=== PATIENT | female | born 1945 | race Caucasian/White ===

== ENCOUNTER 2016-09-16 10:22 | Inpatient (IN) | payer OTHER ==
[2016-09-16] MEDS ORDERED: IOPAMIDOL (ISOVUE-370) 150 ML BTL IV ONE (11:26)
[2016-09-16] MEDS ORDERED: OXYCODONE/APAP 5/325 TAB PO PRN (14:08)
[2016-09-16] MEDS ORDERED: ONDANSETRON 4 MG/2 ML VIAL IVP PRN (14:08)
[2016-09-16] MEDS ORDERED: ACETAMINOPHEN 325 MG TAB PO PRN (14:08)
[2016-09-16 15:52] LABS: % IMMATURE GRANULYOCYTES 2.2 % (0.0-1.1); ABSOLUTE IMMATURE GRANULOCYTES 0.26 10^3/uL (0.00-0.10); ADD DIFF? NO; ADD MORPH? NO; ADD SCAN? NO; ATYPICAL LYMPHOCYTE FLAG 0 (0-99); FRAGMENT RBC FLAG 0 (0-99); HEMATOCRIT 41.7 % (38.0-47.0); HEMOGLOBIN 13.6 g/dL (12.6-16.3); LEFT SHIFT FLG 10 (0-99); LIPEMIA HEMOLYSIS FLAG 80 (0-99); MEAN CELL HEMOGLOBIN 30.4 pg (27.9-34.1); MEAN CELL HEMOGLOBIN CONCENTR. 32.6 g/dL (32.4-36.7); MEAN CELL VOLUME 93.3 fL (81.5-99.8); MEAN PLATELET VOLUME 10.3 fL (8.7-11.7); PLATELET CLUMPS FLAG 0 (0-99); PLATELET COUNT 279 10^3/uL (150-400); RED BLOOD CELL COUNT 4.47 10^6/uL (4.18-5.33); RED CELL DISTRIBUTION WIDTH 14.8 % (11.5-15.2)
[2016-09-16 16:07] LABS: CREATININE 1.1 mg/dL (0.6-1.0)
[2016-09-16 16:16] LABS: INR 1.01 (0.83-1.16); PROTIME(PATIENT) 13.2 SEC (12.0-15.0)
[2016-09-16 16:17] LABS: APTT 21.3 SEC (23.0-38.0)
--- NOTE | 2016-09-16 16:37 | GHP ---
DATE OF ADMISSION: 09/16/2016 HISTORY OF PRESENT ILLNESS: The patient is a 71-year-old female, who returns to our office over con cerns of returning numbness, coolness, and loss of radial pulse in her right arm. The patient repor ts symptoms began approximately 3 days ago while she was in [place], and she drove immediately back to the [place] area to seek evaluation. She underwent surgery in early June 2016, a right axillar y-brachial artery bypass with Dr. Pham, and was recovering well up until this past Friday. She has been taking a daily aspirin, no other anticoagulation. She denies any recent trauma. She is under going a workup with Rheumatology for possible vasculitis, and she is on oral prednisone. She has be en seeing Dr. Sarah, but according to the patient, etiology of her occlusion condition is unknown sti ll at this time. She does have a remote history of pulmonary embolisms, but per the patient she und erwent a hematology workup at that time, which was completely negative. PAST MEDICAL HISTORY: Pulmonary embolisms, bilateral brachial artery surgery in May and er of 2015. ALLERGIES: No known drug allergies. MEDICATIONS: Levothyroxine, prednisone. PAST SURGICAL HISTORY: Right and left brachial artery occlusion surgery with Dr. Pham, hysterectom y appendectomy, cholecystectomy, hernia repair. SOCIAL HISTORY: Former smoker, quit in 2005. No illegal drug use. No regular exercise. Patient i s . The patient used to work at [employer]. PHYSICAL EXAM: GENERAL: Patient is a very pleasant female in no apparent distress. HEAD AND NECK: Normocephalic, atraumatic. No color changes in the face. No swelling in the face or neck. CHEST : CTA bilaterally. HEART: Regular rhythm and rate. ABDOMEN: Soft, nontender. EXTREMITIES: Rig ht hand of normal color upon inspection when compared to the left. There is delayed capillary refil l when compared to the left. No palpable radial pulse. Full range of motion of the wrist and finge rs without difficulty. RADIOLOGY: CT angiogram of the right upper extremity done today at [facility] demonst rates occlusion of the patient's arterial graft. Full report still pending. 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 RECOMMENDATION: The patient was seen and examined in our office by Dr. Pham, and is being admitted to the hospital. Will undergo interventional radiology procedure to possibly lyse the clot. She w ill be observed in the intensive care unit at least for 1 night. She may need prolonged anticoagula tion after this thrombosis. /[id number]/MODL
[2016-09-16] MEDS ORDERED: fentaNYL 100 MCG/2 ML INJ ONE ×3 (17:05→18:33)
[2016-09-16] MEDS ORDERED: LABETALOL HCL 5 MG/ML 20 ML MDV ONE (17:05)
[2016-09-16] MEDS ORDERED: MIDAZOLAM 2 MG/2 ML VIAL ONE ×3 (17:05→18:33)
[2016-09-16] MEDS ORDERED: ALTEPLASE 5 MG in NS 100 ML IVP ONE (18:00)
[2016-09-16] MEDS ORDERED: IOPAMIDOL (ISOVUE-300) 100 ML BTL IV ONE (18:46)
[2016-09-16] MEDS ORDERED: HEPARIN 10,000 UNIT/10 ML MDV ONE (18:47)
[2016-09-16] MEDS ORDERED: HEPARIN/DEXTROSE 25,000 UNIT/500 ML BAG IV ONE (18:48)
[2016-09-16] MEDS ORDERED: hydrALAZINE 20 MG/ML VIAL ONE (18:49)
--- NOTE | 2016-09-16 19:09 | POSTOPPROG ---
Post Op Note Date of Operation: 09/16/16 Surgeon: Jevon Kelsey Anesthesia: IV Sedation Pre-op Diagnosis: Occluded right brachial arterial bypass graft Post-op Diagnosis: Same Indication: Ischemic right hand Procedure: Arteriography; initiation of catheter-directed arterial thrombolysis RUE Findings: Good position of catheter in occluded bypass graft Inf/Abcess present in the surg proc area at time of surgery?: No EBL: Minimal Complications: 0
[2016-09-16] MEDS: HEPARIN/DEXTROSE 500 ML IV SCH (20:24)
[2016-09-16] MEDS: D5W 1/2 NS W/ 20 KCl/L 1,000 ML IV SCH (20:24)
[2016-09-16] MEDS: HYDROCODONE/APAP 5/325 TAB PO PRN (20:54)
[2016-09-16] MEDS: ALTEPLASE 5 MG in NS 100 ML IV SCH (21:17)
[2016-09-16] MEDS: LORazepam 1 MG TAB PO PRN (22:16)
--- NOTE | 2016-09-17 00:25 | SOAPPROG ---
SOAP Progress Note Assessment/Plan: Assessment: HAND WARMER BUT NO PULSE YET Plan:CONTINUE THROMBOLYSIS 09/17/16 00:24 Objective: Vital Signs Temp Pulse Resp BP Pulse Ox 36.6 C 56 L 15 124/48 H 94 09/16/16 19:00 09/17/16 00:00 09/17/16 00:00 09/17/16 00:00 09/17/16 00:00 Laboratory Results 09/16/16 14:40 09/16/16 Unknown PT 13.2 SEC (12.0-15.0) 09/16/16 14:40 INR 1.01 (0.83-1.16) 09/16/16 14:40 ICD10 Worksheet Patient Problems: Problems Problem Status Onset Occlusion of right brachial artery Acute
[2016-09-17] MEDS: ALTEPLASE 5 MG in NS 100 ML IV SCH ×3 (03:07→15:04)
[2016-09-17] MEDS: hydrALAZINE 20 MG/ML VIAL IVP PRN ×2 (03:15→22:07)
[2016-09-17] MEDS: HYDROCODONE/APAP 5/325 TAB PO PRN ×3 (04:18→14:54)
[2016-09-17] MEDS: LORazepam 1 MG TAB PO PRN (04:35)
[2016-09-17] MEDS: D5W 1/2 NS W/ 20 KCl/L 1,000 ML IV SCH ×2 (04:40→18:04)
[2016-09-17 05:06] LABS: % IMMATURE GRANULYOCYTES 0.9 % (0.0-1.1); ABSOLUTE IMMATURE GRANULOCYTES 0.11 10^3/uL (0.00-0.10); ADD DIFF? NO; ADD MORPH? NO; ADD SCAN? NO; ATYPICAL LYMPHOCYTE FLAG 0 (0-99); FRAGMENT RBC FLAG 0 (0-99); HEMATOCRIT 37.9 % (38.0-47.0); HEMOGLOBIN 12.1 g/dL (12.6-16.3); LEFT SHIFT FLG 0 (0-99); LIPEMIA HEMOLYSIS FLAG 80 (0-99); MEAN CELL HEMOGLOBIN 30.4 pg (27.9-34.1); MEAN CELL HEMOGLOBIN CONCENTR. 31.9 g/dL (32.4-36.7); MEAN CELL VOLUME 95.2 fL (81.5-99.8); MEAN PLATELET VOLUME 10.7 fL (8.7-11.7); PLATELET CLUMPS FLAG 0 (0-99); PLATELET COUNT 217 10^3/uL (150-400); RED BLOOD CELL COUNT 3.98 10^6/uL (4.18-5.33); RED CELL DISTRIBUTION WIDTH 14.9 % (11.5-15.2)
[2016-09-17 05:30] LABS: ANION GAP 4 mEq/L (8-16); CALCIUM 8.2 mg/dL (8.5-10.4); CARBON DIOXIDE 28 mEq/l (22-31); CHLORIDE 109 mEq/L (97-110); CREATININE 0.9 mg/dL (0.6-1.0); GLOMERULAR FILTRATION RATE > 60; GLUCOSE 152 mg/dL (70-100); POTASSIUM 4.5 mEq/L (3.5-5.2); SODIUM 141 mEq/L (134-144)
[2016-09-17] MEDS: predniSONE 20 MG TAB PO SCH (08:12)
--- NOTE | 2016-09-17 08:21 | SOAPPROG ---
SOAP Progress Note Assessment/Plan: Assessment: HAND WARMER BUT NO PULSE YET Plan:CONTINUE THROMBOLYSIS 09/17/16 00:24 09/17/16 08:20 RT HAND WARMER AND NO PAIN BUT STILL NO PULSES AT WRIST/ FU WITH ANGIO Objective: Vital Signs Temp Pulse Resp BP Pulse Ox 36.8 C 59 L 19 145/60 H 100 09/17/16 08:00 09/17/16 08:00 09/17/16 08:00 09/17/16 08:00 09/17/16 08:00 Laboratory Results 09/17/16 04:42 09/17/16 04:42 09/16/16 09/17/16 09/18/16 05:59 05:59 05:59 Intake Total 2296 Output Total 1475 Balance 821 PT 13.2 SEC (12.0-15.0) 09/16/16 14:40 INR 1.01 (0.83-1.16) 09/16/16 14:40 ICD10 Worksheet Patient Problems: Problems Problem Status Onset Occlusion of right brachial artery Acute
[2016-09-17] MEDS ORDERED: MIDAZOLAM 2 MG/2 ML VIAL ONE (11:19)
[2016-09-17] MEDS ORDERED: fentaNYL 100 MCG/2 ML INJ ONE ×2 (11:19→12:00)
--- NOTE | 2016-09-17 12:47 | POSTOPPROG ---
Post Op Note Date of Operation: 09/17/16 Surgeon: Jevon Kelsey Anesthesia: IV Sedation Pre-op Diagnosis: Occluded right brachial arterial bypass graft Post-op Diagnosis: Arterial embolus, right hand Indication: Ischemic right hand, follow-up IA thrombolysis Procedure: Arteriogram right arm and hand; catheter reposition Findings: Lysis of occluded bypass graft. Embolus in radial artery of right hand. Inf/Abcess present in the surg proc area at time of surgery?: No EBL: 50-100 Complications: 0
[2016-09-17] MEDS ORDERED: NITROGLYCERIN/D5W 50 MG/250 ML BOTTLE IV ONE (12:48)
[2016-09-17] MEDS ORDERED: IOPAMIDOL (ISOVUE-300) 100 ML BTL IV ONE (12:48)
[2016-09-17] MEDS ORDERED: HEPARIN 10,000 UNIT/10 ML MDV ONE (15:35)
--- NOTE | 2016-09-17 18:02 | GCON ---
PULMONARY CRITICAL CARE CONSULTATION. DATE OF CONSULTATION: 09/17/2016 REASON FOR CONSULTATION: Arterial occlusion of the right upper extremity. HISTORY: The patient is a 71-year-old, who was admitted for the loss of radial arterial pulse in her right upper extremity. This happened several days ago in [place]. She returned back to [facility] by car for evaluation by Dr. Pham. Several months ago, she had a right axillary brachial artery bypass secondary to occlusion for unclear reasons. She has been on daily aspirin since. 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 Following admission, she was taken to Interventional Radiology for EKOS and tPA lysis. A clot was found occluding the patient's arterial graft site. She has been re-evaluated today by Interventional Radiology. The tPA drip is continuing. Perfusion has improved; however, some clot apparently persists. PAST MEDICAL HISTORY: Remarkable as noted above. Brachial artery surgery and bypasses as noted. SOCIAL HISTORY: The patient is . She works at [employer] currently. She smoked in the past, quitting about 10 years ago. Significant alcohol is denied. PHYSICAL EXAMINATION: GENERAL: Reveals a woman who is sedated and resting comfortably post interventional radiologic procedure. She does have some sonorous respirations. CHEST: Clear. HEART: Regular in rate and rhythm. ABDOMEN: Soft, nontender. Bowel sounds are present. The right hand grossly looks within normal limits and was not examined currently. The EKOS catheter is in place via the right side. NEUROLOGIC: Examination has been intact. DATABASE/RADIOLOGIC STUDIES: As outlined above. LABORATORY: White blood cell count is 12,900, hematocrit 38, platelets 217, 000. PT and PTT are within normal limits. Fibrinogen is normal. Basic metabolic panel is normal with the exception of mildly elevated glucose at 152. ASSESSMENT: 1. Reocclusion of the right brachial artery at the previous graft sites. She is receiving tPA lysis per Interventional Radiology. She appears to be doing well, with improvement. Anticoagulation will need to be considered post procedure. 2. Possible history of inflammatory vasculitis. On prednisone at 40 mg per day. PLAN AND RECOMMENDATIONS: The patient will be kept in the intensive care unit while the EKOS catheter and tPA infusion are continuing. She will go back to Interventional Radiology for re-imaging tomorrow and plans regarding continuing or stopping her tPA drip. Appropriate pain control will be maintained. Anticoagulation will be continued post procedure, along with anti-platelet therapy with aspirin. Prednisone will be continued for now. Further plans and recommendations will be made based on her progress over the next 12-24 hours. /[id number]/MODL MTDD
--- NOTE | 2016-09-17 19:37 | SOAPPROG ---
SOAP Progress Note Assessment/Plan: Assessment: Improving ischemia of right hand Plan: NTG patch right hand. TPA 0.5 mg/hr IA overnight Heparin 400 U/hr Arteriography tomorrow am. 09/17/16 19:34 Subjective: Patient in better spirits. Eating and drinking without nausea. Volunteers that sensation has returned to all fingers except little finger. Objective: Vital Signs Temp Pulse Resp BP Pulse Ox 36.8 C 60 15 145/53 H 97 09/17/16 08:00 09/17/16 18:00 09/17/16 18:00 09/17/16 18:00 09/17/16 18:00 Laboratory Results 09/17/16 04:42 09/17/16 04:42 09/16/16 09/17/16 09/18/16 05:59 05:59 05:59 Intake Total 2296 1932 Output Total 1475 1400 Balance 821 532 PT 13.2 SEC (12.0-15.0) 09/16/16 14:40 INR 1.01 (0.83-1.16) 09/16/16 14:40 Hand warmer. Skin less pale. Capillary refill of fingers still slow but improved. Right brachial pulse 2+ Right radial pulse 1+ DP and PT pulses present in both feet. Right groin dry; no hematoma. Infusates are connected properly. ICD10 Worksheet Patient Problems: Problems Problem Status Onset Occlusion of right brachial artery Acute
[2016-09-17 19:43] LABS: APTT 32.9 SEC (23.0-38.0)
[2016-09-17] MEDS: PATCH REMOVAL 1 EA PATCH TD SCH (20:25)
[2016-09-17] MEDS: NITROGLYCERIN 0.4 MG/HR PATCH TD SCH (20:27)
[2016-09-18] MEDS: LORazepam 1 MG TAB PO PRN ×2 (01:06→18:05)
[2016-09-18] MEDS: ALTEPLASE 5 MG in NS 100 ML IV SCH ×2 (01:07→09:23)
[2016-09-18] MEDS: LEVOTHYROXINE 75 MCG TAB PO SCH (06:06)
[2016-09-18] MEDS: hydrALAZINE 20 MG/ML VIAL IVP PRN ×3 (06:08→18:06)
[2016-09-18] MEDS: HYDROmorphONE/DILAUDID 1 MG/ML SYR IVP PRN ×3 (06:45→21:44)
[2016-09-18 07:59] LABS: APTT 29.2 SEC (23.0-38.0)
[2016-09-18] MEDS: NITROGLYCERIN 0.4 MG/HR PATCH TD SCH (08:45)
[2016-09-18] MEDS: predniSONE 20 MG TAB PO SCH (08:45)
[2016-09-18] MEDS ORDERED: LORazepam 2 MG/ML INJ ONE (09:44)
[2016-09-18] MEDS ORDERED: LORazepam 2 MG/ML INJ IVP PRN (09:58)
--- NOTE | 2016-09-18 10:44 | SOAPPROG ---
SOAP Progress Note Assessment/Plan: Assessment/Plan: 71 Y F c hx R axillary-brachial bypass graft admitted with cold painful RUE, graft occlusion. TPA and heparin flowing. Arm feels better, hand warmer, finger tips still slightly cyanotic and tender. To IR later today for reevaulation. S: no pain unless moving arm. some tenderness at finger tips. overall feeling better not resolved O: alert, nad ncat, mmm no wob ext: +proximal radial and ulnar and faint perez arch pulses on doppler. cannot doppler distal radial pulse. hand is warm, finger tips slight cyanosis, +mild delay in cap refill 09/18/16 10:41 Objective: Vital Signs Temp Pulse Resp BP Pulse Ox 36.8 C 69 20 135/48 H 97 09/17/16 08:00 09/18/16 10:00 09/18/16 10:00 09/18/16 10:00 09/18/16 10:00 Laboratory Results 09/17/16 04:42 09/17/16 04:42 09/17/16 09/18/16 09/19/16 05:59 05:59 05:59 Intake Total 2296 3722 Output Total 1475 2350 Balance 821 1372 PT 13.2 SEC (12.0-15.0) 09/16/16 14:40 INR 1.01 (0.83-1.16) 09/16/16 14:40 ICD10 Worksheet Patient Problems: Problems Problem Status Onset Occlusion of right brachial artery Acute
[2016-09-18] MEDS ORDERED: NALOXONE HCL 0.4 MG/ML INJ ONE (14:57)
[2016-09-18] MEDS ORDERED: FLUMAZENIL 0.5 MG/5 ML MDV IVP ONE (14:57)
[2016-09-18] MEDS ORDERED: fentaNYL 100 MCG/2 ML INJ ONE ×2 (14:58→16:53)
[2016-09-18] MEDS ORDERED: MIDAZOLAM 2 MG/2 ML VIAL ONE (14:58)
[2016-09-18] MEDS ORDERED: CEFAZOLIN 2 GM/DEXTROSE/100 ML BAG IV ONE (16:06)
[2016-09-18] MEDS ORDERED: NITROGLYCERIN 50 MG/10 ML SDV IV ONE (16:38)
[2016-09-18] MEDS ORDERED: VERAPAMIL 5 MG/2 ML VIAL ONE (16:38)
[2016-09-18] MEDS ORDERED: HEPARIN 10,000 UNIT/10 ML MDV ONE (16:39)
[2016-09-18] MEDS ORDERED: IOPAMIDOL (ISOVUE-300) 100 ML BTL IV ONE (17:26)
[2016-09-18] MEDS ORDERED: NITROGLYCERIN/D5W 50 MG/250 ML BOTTLE IV ONE (17:26)
--- NOTE | 2016-09-18 18:28 | PDINTPN ---
Mixer Tender Progress Note Assessment/Plan: Assessment: Arterial occlusion of the right brachial artery at the previous graft site. Status post [place] in tPA per Interventional Radiology. Going back today for further assessment. Surgery following. History of bilateral axillary/brachial artery bypass grafting. History of inflammatory vasculitis, prednisone therapy. Anticoagulation: On heparin drip with localized tPA. Plan: Back to IR today for further angiography and treatment per their findings. Follow hand perfusion, neurologic status. Continue anticoagulation. Subjective: Doing okay. Some pain in the distal hand. Objective: Vital Signs Temp Pulse Resp BP Pulse Ox 36.8 C 64 14 182/105 H 97 09/17/16 08:00 09/18/16 14:00 09/18/16 14:00 09/18/16 18:06 09/18/16 14:00 Laboratory Results 09/17/16 04:42 09/17/16 04:42 09/17/16 09/18/16 09/19/16 05:59 05:59 05:59 Intake Total 2296 3722 795 Output Total 1475 2350 1100 Balance 821 1372 -305 PT 13.2 SEC (12.0-15.0) 09/16/16 14:40 INR 1.01 (0.83-1.16) 09/16/16 14:40 Physical Exam - Physical Exam General Appearance: alert, no apparent distress, obese EENT: other (Nasal cannula 2 L) Neck: normal inspection (Large neck) Respiratory: lungs clear, decreased breath sounds (At bases) Cardiac/Chest: regular rate, rhythm Abdomen: normal bowel sounds, non-tender, soft Pelvic Exam: other Skin: normal color, warm/dry Extremities: pedal edema (Trace +), other (Distal hands remains somewhat dusky, poor refill, slightly cool) Neuro/Psych: no motor/sensory deficits (Except related to the right upper extremity), No cognition abnormalities ICD10 Worksheet Patient Problems: Problems Problem Status Onset Occlusion of right brachial artery Acute
[2016-09-18] MEDS: PATCH REMOVAL 1 EA PATCH TD SCH (19:04)
[2016-09-18] MEDS ORDERED: NITROGLYCERIN 2% 1 GM PACKET TP ONE (20:00)
[2016-09-18] MEDS: NS IVP SCH (21:51)
[2016-09-18] MEDS: VERAPAMIL IVP SCH (21:51)
[2016-09-18] MEDS: HYDROCODONE/APAP 5/325 TAB PO PRN (23:00)
[2016-09-19] MEDS: LORazepam 1 MG TAB PO PRN (00:45)
[2016-09-19] MEDS: ALTEPLASE 5 MG in NS 100 ML IV SCH ×2 (00:45→15:26)
[2016-09-19] MEDS: LEVOTHYROXINE 75 MCG TAB PO SCH (06:39)
[2016-09-19] MEDS: NS IVP SCH (06:39)
[2016-09-19] MEDS: VERAPAMIL IVP SCH (06:39)
[2016-09-19] MEDS: hydrALAZINE 20 MG/ML VIAL IVP PRN (08:39)
--- NOTE | 2016-09-19 10:12 | SOAPPROG ---
SOAP Progress Note Assessment/Plan: Assessment: 71yo female s/p R arm brachial artery bypass readmitted for decreased pulse, cold upper ext S/P IR angioplasty, getting TPA Pt feels more pain in right forearm this AM PE awake alert earful RUE cool to touch, right prox radial pulse and ulnar upon doppler, able to move fingers small amount, catheter in place Plan: will add procardia discussed with Dr Pham 09/19/16 10:09 09/19/16 10:12 Objective: Vital Signs Temp Pulse Resp BP Pulse Ox 36.9 C 62 14 192/63 H 98 09/18/16 20:00 09/19/16 07:35 09/19/16 07:35 09/19/16 08:39 09/19/16 07:35 Laboratory Results 09/17/16 04:42 09/17/16 04:42 09/18/16 09/19/16 09/20/16 05:59 05:59 05:59 Intake Total 3722 2981 Output Total 2350 3900 Balance 1372 -919 PT 13.2 SEC (12.0-15.0) 09/16/16 14:40 INR 1.01 (0.83-1.16) 09/16/16 14:40 ICD10 Worksheet Patient Problems: Problems Problem Status Onset Occlusion of right brachial artery Acute
[2016-09-19] MEDS: predniSONE 20 MG TAB PO SCH (10:28)
[2016-09-19] MEDS: NITROGLYCERIN 0.4 MG/HR PATCH TD SCH (10:29)
[2016-09-19] MEDS: NIFEdipine ER 30 MG TAB PO SCH (10:29)
[2016-09-19] MEDS ORDERED: FLUMAZENIL 0.5 MG/5 ML MDV IVP ONE (11:06)
[2016-09-19] MEDS ORDERED: NALOXONE HCL 0.4 MG/ML INJ ONE (11:07)
[2016-09-19] MEDS ORDERED: fentaNYL 100 MCG/2 ML INJ ONE ×2 (11:07→17:15)
[2016-09-19] MEDS ORDERED: MIDAZOLAM 2 MG/2 ML VIAL ONE (11:08)
[2016-09-19] MEDS ORDERED: HEPARIN 10,000 UNIT/10 ML MDV ONE ×3 (11:32→13:02)
[2016-09-19] MEDS ORDERED: PROTAMINE SULFATE 50 MG/5 ML VIAL IVP ONE (11:45)
[2016-09-19] MEDS ORDERED: IOPAMIDOL (ISOVUE-300) 100 ML BTL IV ONE ×2 (13:02→18:44)
--- NOTE | 2016-09-19 16:01 | PCMIDPN ---
Assessment/Plan: Assessment: Arterial occlusion of the right brachial artery at the previous graft site. Status post [place] in tPA per Interventional Radiology. Going back today for further assessment. Surgery following. History of bilateral axillary/brachial artery bypass grafting. History of inflammatory vasculitis, prednisone therapy. Anticoagulation: On heparin drip with localized tPA. Plan: Back to IR today for further angiography and treatment per their findings. Follow hand perfusion, neurologic status. Continue anticoagulation. Objective: Vital Signs Temp Pulse Resp BP Pulse Ox 36.9 C 68 20 165/69 H 97 09/18/16 20:00 09/19/16 14:19 09/19/16 14:19 09/19/16 14:19 09/19/16 14:19 Laboratory Results 09/17/16 04:42 09/17/16 04:42 09/18/16 09/19/16 09/20/16 05:59 05:59 05:59 Intake Total 3722 2987 Output Total 1515 8925 Balance 1372 -919 ICD10 Worksheet Patient Problems: Problems Problem Status Onset Occlusion of right brachial artery Acute
--- NOTE | 2016-09-19 16:17 | PDINTPN ---
Instrumentation Manager Progress Note Assessment/Plan: Assessment: Arterial occlusion of the right brachial artery at the previous graft site. Status post [place] in tPA per Interventional Radiology. Going back today for further assessment. Surgery following. History of bilateral axillary/brachial artery bypass grafting. History of inflammatory vasculitis, prednisone therapy. She was diagnosed with Jorge cell arteritis by biopsy and has been on steroids, initially starting at [address] Sarah. He does not feel that this represents recurrent vasculitis but cannot absolutely exclude this. We discussed pulse steroids. He felt there was no downside to this. Will initiate 1 g per day x3 days, then back to oral prednisone. Anticoagulation: On heparin drip with localized tPA. Plan: Back to IR today for further angiography and treatment later today. Follow hand perfusion, neurologic status. Continue anticoagulation once off tPA. Will pulse dose Solu-Medrol at 1 g q.day for 3 days. Subjective: Concern regarding her hands/fingers: Remains cold, numb Objective: Vital Signs Temp Pulse Resp BP Pulse Ox 36.9 C 68 20 165/69 H 97 09/18/16 20:00 09/19/16 14:19 09/19/16 14:19 09/19/16 14:19 09/19/16 14:19 Laboratory Results 09/17/16 04:42 09/17/16 04:42 09/18/16 09/19/16 09/20/16 05:59 05:59 05:59 Intake Total 3722 2981 Output Total 2350 3900 Balance 1372 -919 PT 13.2 SEC (12.0-15.0) 09/16/16 14:40 INR 1.01 (0.83-1.16) 09/16/16 14:40 Status post return to interventional Radiology for further tPA. Results of studies and procedure pending. Physical Exam - Physical Exam General Appearance: alert, no apparent distress, obese EENT: PERRL/EOMI, other (Nasal cannula 2 L) Neck: normal inspection Respiratory: lungs clear, decreased breath sounds Cardiac/Chest: regular rate, rhythm Abdomen: normal bowel sounds, non-tender, soft Pelvic Exam: other ([place] catheter, good urine output) Skin: normal color, warm/dry, mottled (Related to right hand/fingers) Extremities: other (Right hand changes: Cyanotic, cool, decreased sensation) Neuro/Psych: no motor/sensory deficits (execpt for right hand), No cognition abnormalities ICD10 Worksheet Patient Problems: Problems Problem Status Onset Occlusion of right brachial artery Acute
[2016-09-19 16:38] LABS: FIBRINOGEN 397 mg/dL (214-456)
[2016-09-19] MEDS: PANTOPRAZOLE SODIUM 40 MG in NS 100 ML IV SCH (16:48)
[2016-09-19 16:54] LABS: HEMATOCRIT 35.4 % (38.0-47.0); HEMOGLOBIN 11.7 g/dL (12.6-16.3); MEAN CELL HEMOGLOBIN 31.5 pg (27.9-34.1); MEAN CELL HEMOGLOBIN CONCENTR. 33.1 g/dL (32.4-36.7); MEAN CELL VOLUME 95.2 fL (81.5-99.8); RED BLOOD CELL COUNT 3.72 10^6/uL (4.18-5.33); RED CELL DISTRIBUTION WIDTH 15.2 % (11.5-15.2)
[2016-09-19] MEDS: methylPREDNISolone SOD SUCC 1,000 MG in D5W 100 ML IV SCH (19:21)
[2016-09-19] MEDS: PATCH REMOVAL 1 EA PATCH TD SCH (19:22)
[2016-09-19] MEDS: D5W 1/2 NS W/ 20 KCl/L 1,000 ML IV SCH (21:36)
--- NOTE | 2016-09-19 23:25 | SOAPPROG ---
ARABELLA Progress Note Assessment/Plan: Assessment: HAND WARMER BUT NO PULSE YET Plan:CONTINUE THROMBOLYSIS 09/17/16 00:24 09/17/16 08:20 RT HAND WARMER AND NO PAIN BUT STILL NO PULSES AT WRIST/ FU WITH ANGIO 09/19/16 23:24 APPEARS TO HAVE SUCCESSFUL THROMBOLYSIS/ ? VASCULITIS AT PROXIMAL ANASTAMOSIS/ CONTINUE ANTICOAGULATION/ FU IMAGING IN 4 WEEKS Objective: Vital Signs Temp Pulse Resp BP Pulse Ox 36.9 C 64 19 133/60 H 98 09/18/16 20:00 09/19/16 22:00 09/19/16 22:00 09/19/16 22:00 09/19/16 22:00 Laboratory Results 09/19/16 16:45 09/17/16 04:42 09/18/16 09/19/16 09/20/16 05:59 05:59 05:59 Intake Total 3722 2981 1425 Output Total 2350 3900 1950 Balance 1372 -919 -525 PT 13.2 SEC (12.0-15.0) 09/16/16 14:40 INR 1.01 (0.83-1.16) 09/16/16 14:40 ICD10 Worksheet Patient Problems: Problems Problem Status Onset Occlusion of right brachial artery Acute
[2016-09-20 05:06] LABS: ALANINE AMINOTRANSFERASE 28 IU/L (9-52); ALBUMIN 2.7 g/dL (3.5-5.0); ALKALINE PHOSPHATASE 44 IU/L (38-126); ANION GAP 5 mEq/L (8-16); ASPARTATE AMINOTRANSFERASE 33 IU/L (14-46); BILIRUBIN,TOTAL 0.7 mg/dL (0.1-1.4); CALCIUM 7.6 mg/dL (8.5-10.4); CARBON DIOXIDE 23 mEq/l (22-31); CHLORIDE 108 mEq/L (97-110); CREATININE 0.8 mg/dL (0.6-1.0); GLOMERULAR FILTRATION RATE > 60; GLUCOSE 172 mg/dL (70-100); POTASSIUM 5.1 mEq/L (3.5-5.2); SODIUM 136 mEq/L (134-144); TOTAL PROTEIN 5.1 g/dL (6.3-8.2)
[2016-09-20] MEDS: LEVOTHYROXINE 75 MCG TAB PO SCH (06:28)
[2016-09-20] MEDS: NITROGLYCERIN 0.4 MG/HR PATCH TD SCH (08:26)
[2016-09-20 08:29] LABS: HEMATOCRIT 34.1 % (38.0-47.0); HEMOGLOBIN 11.2 g/dL (12.6-16.3); MEAN CELL HEMOGLOBIN 30.4 pg (27.9-34.1); MEAN CELL HEMOGLOBIN CONCENTR. 32.8 g/dL (32.4-36.7); MEAN CELL VOLUME 92.7 fL (81.5-99.8); RED BLOOD CELL COUNT 3.68 10^6/uL (4.18-5.33); RED CELL DISTRIBUTION WIDTH 14.9 % (11.5-15.2)
[2016-09-20] MEDS: PANTOPRAZOLE SODIUM 40 MG in NS 100 ML IV SCH (09:08)
[2016-09-20] MEDS: methylPREDNISolone SOD SUCC 1,000 MG in D5W 100 ML IV SCH (09:08)
--- NOTE | 2016-09-20 09:37 | SOAPPROG ---
ARABELLA Progress Note Assessment/Plan: Assessment: 71yo female s/p R arm brachial artery bypass readmitted for decreased pulse, cold upper ext S/P IR angioplasty, Pt feels much better today, arm with less pain, wants to go home PE awake alert RUE warm to touch, bandage dry, Plan: Home in 2-3 days will start coumadin today, will need lifelong anticoagulation, ?F/U with Dr Velasquez in [place] whom patient saw 5 years ago after PE seen with Dr Pham 09/19/16 10:09 09/19/16 10:12 09/20/16 09:34 Objective: Vital Signs Temp Pulse Resp BP Pulse Ox 36.9 C 62 13 136/42 H 90 L 09/18/16 20:00 09/20/16 04:00 09/20/16 04:00 09/20/16 04:00 09/20/16 04:00 Laboratory Results 09/20/16 08:09 09/20/16 04:30 09/19/16 09/20/16 09/21/16 05:59 05:59 05:59 Intake Total 2983 0097 Output Total 4261 1660 Balance -919 -305 PT 13.2 SEC (12.0-15.0) 09/16/16 14:40 INR 1.01 (0.83-1.16) 09/16/16 14:40 ICD10 Worksheet Patient Problems: Problems Problem Status Onset Occlusion of right brachial artery Acute
[2016-09-20] MEDS: NIFEdipine ER 30 MG TAB PO SCH (10:50)
--- NOTE | 2016-09-20 13:06 | PDINTPN ---
Basket Assembler Progress Note Assessment/Plan: Assessment: Arterial occlusion of the right brachial artery at the previous graft site. Status post ecos and tPA per Interventional Radiology. Removed yesterday after more aggressive thrombolysis and documentation of excellent vascular patency at the graft site and distally. Surgery following as well. History of bilateral axillary/brachial artery bypass grafting. Apparently secondary to vasculitis History of inflammatory vasculitis, prednisone therapy. She was diagnosed with giant cell arteritis by biopsy and has been on steroids, initially starting at [address] Sarah. He does not feel that this represents recurrent vasculitis but cannot exclude this. On empiric pulse steroids, day 2/ 3 of 1 gm. However, I doubt this resulted in her significant improvement. Anticoagulation: On heparin drip, Coumadin ordered. Metabolic: Increased glucoses secondary to steroids. May need sliding scale coverage. Plan: Continue current therapies, anticoagulation with heparin and initiation of Coumadin. Continue pulse steroids with taper to 60mg prednisone per day once off Solu-Medrol. Subjective: Hand is significantly better today, warm, without pain. Objective: Vital Signs Temp Pulse Resp BP Pulse Ox 36.5 C 69 17 157/63 H 94 09/20/16 10:00 09/20/16 10:00 09/20/16 10:00 09/20/16 10:00 09/20/16 10:00 Laboratory Results 09/20/16 08:09 09/20/16 04:30 09/19/16 09/20/16 09/21/16 05:59 05:59 05:59 Intake Total 2981 2845 Output Total 3900 3150 Balance -919 -305 PT 13.2 SEC (12.0-15.0) 09/16/16 14:40 INR 1.01 (0.83-1.16) 09/16/16 14:40 Physical Exam - Physical Exam General Appearance: alert, no apparent distress, obese EENT: PERRL/EOMI, other (Nasal cannula at 2 L when in bed, room air when not) Neck: normal inspection Respiratory: lungs clear, decreased breath sounds Cardiac/Chest: regular rate, rhythm Abdomen: normal bowel sounds, non-tender, soft (Obese) Skin: normal color, warm/dry Extremities: other (Ischemic changes of right upper extremity resolving) Neuro/Psych: no motor/sensory deficits, No cognition abnormalities ICD10 Worksheet Patient Problems: Problems Problem Status Onset Occlusion of right brachial artery Acute
[2016-09-20] MEDS ORDERED: D50W 25 GM/50 ML SYR IVP PRN (13:24)
[2016-09-20] MEDS ORDERED: HEPARIN 10,000 UNIT/10 ML MDV IVP PRN (14:26)
--- NOTE | 2016-09-20 14:27 | SOAPPROG ---
SOAP Progress Note Assessment/Plan: Assessment: Patency of RUE arterial supply. Reviewed with Dr. Escoto and Dr. Pham. Plan: Lifelong systemic anticoagulation. 09/17/16 19:34 09/20/16 14:21 09/20/16 14:27 Subjective: Right hand is warm and free of pain. Patient is very happy with the outcome. Objective: Right hand is warm. Capillary refill 1-2 seconds, all fingers. Pulses Radial Ulnar Brachial Femoral PT DP Left 4+ 4 4 Right 4 4 4 4 4 4 Right groin dry, no hematoma. Right wrist shows mild radial ecchymosis. Vital Signs Temp Pulse Resp BP Pulse Ox 36.5 C 69 17 157/63 H 94 09/20/16 10:00 09/20/16 10:00 09/20/16 10:00 09/20/16 10:00 09/20/16 10:00 Laboratory Results 09/20/16 08:09 09/20/16 04:30 09/19/16 09/20/16 09/21/16 05:59 05:59 05:59 Intake Total 2981 2845 Output Total 3900 3150 Balance -919 -305 PT 13.2 SEC (12.0-15.0) 09/16/16 14:40 INR 1.01 (0.83-1.16) 09/16/16 14:40 ICD10 Worksheet Patient Problems: Problems Problem Status Onset Occlusion of right brachial artery Acute
[2016-09-20] MEDS: WARFARIN SODIUM 5 MG TAB PO SCH (16:36)
[2016-09-20] MEDS: hydrALAZINE 20 MG/ML VIAL IVP PRN (18:07)
[2016-09-20] MEDS: PATCH REMOVAL 1 EA PATCH TD SCH (21:14)
[2016-09-21] MEDS: LORazepam 1 MG TAB PO PRN (00:02)
[2016-09-21] MEDS: LEVOTHYROXINE 75 MCG TAB PO SCH (05:51)
[2016-09-21] MEDS: PANTOPRAZOLE SODIUM 40 MG TAB PO SCH (07:45)
[2016-09-21] MEDS: NIFEdipine ER 30 MG TAB PO SCH (07:45)
[2016-09-21] MEDS: NITROGLYCERIN 0.4 MG/HR PATCH TD SCH (07:47)
--- NOTE | 2016-09-21 07:55 | SOAPPROG ---
ARABELLA Progress Note Assessment/Plan: Assessment: HAND WARMER BUT NO PULSE YET Plan:CONTINUE THROMBOLYSIS 09/17/16 00:24 09/17/16 08:20 RT HAND WARMER AND NO PAIN BUT STILL NO PULSES AT WRIST/ FU WITH ANGIO 09/19/16 23:24 APPEARS TO HAVE SUCCESSFUL THROMBOLYSIS/ ? VASCULITIS AT PROXIMAL ANASTAMOSIS/ CONTINUE ANTICOAGULATION/ FU IMAGING IN 4 WEEKS 09/21/16 07:53 hand warm and functional/ some numbness/ great brachial and adequate radial pulse/ home soon on full anticoagulation Objective: Vital Signs Temp Pulse Resp BP Pulse Ox 36.7 C 70 20 139/54 H 96 09/21/16 04:00 09/21/16 04:00 09/21/16 04:00 09/21/16 07:45 09/21/16 04:00 Laboratory Results 09/20/16 08:09 09/20/16 04:30 09/20/16 09/21/16 09/22/16 05:59 05:59 06:59 Intake Total 2845 1612 Output Total 3150 400 Balance -305 1212 PT 13.2 SEC (12.0-15.0) 09/16/16 14:40 INR 1.01 (0.83-1.16) 09/16/16 14:40 ICD10 Worksheet Patient Problems: Problems Problem Status Onset Occlusion of right brachial artery Acute
[2016-09-21] MEDS: methylPREDNISolone SOD SUCC 1,000 MG in D5W 100 ML IV SCH (08:19)
[2016-09-21] MEDS: HEPARIN/DEXTROSE 500 ML IV SCH (08:19)
[2016-09-21] MEDS: ENOXAPARIN 100 MG/ML SYR SC SCH ×2 (11:42→20:01)
[2016-09-21 13:39] LABS: INR 1.37 (0.83-1.16); PROTIME(PATIENT) 16.9 SEC (12.0-15.0)
[2016-09-21] MEDS: WARFARIN SODIUM 5 MG TAB PO SCH (15:37)
[2016-09-21] MEDS: PATCH REMOVAL 1 EA PATCH TD SCH (20:02)
[2016-09-21 22:34] VITALS: TEMP 98.1; O2SAT 94
[2016-09-22] MEDS: LEVOTHYROXINE 75 MCG TAB PO SCH (05:02)
[2016-09-22 05:32] LABS: INR 1.87 (0.83-1.16); PROTIME(PATIENT) 21.6 SEC (12.0-15.0)
[2016-09-22 07:49] VITALS: BP 155/76; PULSE 68; RESP 18
[2016-09-22] MEDS: predniSONE 20 MG TAB PO SCH (08:38)
[2016-09-22] MEDS: ENOXAPARIN 100 MG/ML SYR SC SCH (08:38)
[2016-09-22] MEDS: PANTOPRAZOLE SODIUM 40 MG TAB PO SCH (08:41)
[2016-09-22] MEDS: NIFEdipine ER 30 MG TAB PO SCH (08:48)
--- NOTE | 2016-09-22 09:37 | SOAPPROG ---
SOAP Progress Note Assessment/Plan: Assessment/Plan: 71 Y F c hx R axillary-brachial bypass graft admitted with cold painful RUE, graft occlusion. Palpable radial pulse. Hand warm. No pain and good function. INR 1.8. D/c to home today with lovenox, warfarin, procardia. F/u 1 week. INR on Friday. Patient would like to get set up at [place] cou[facility] clinic. She may be able to do this via PCP or Dr. Velasquez. S: no pain unless moving arm. some tenderness at finger tips. overall feeling better not resolved O: alert, nad ncat, mmm no wob ext: palpable radial pulse, hand warm 09/22/16 09:35 Objective: Vital Signs Temp Pulse Resp BP Pulse Ox 36.7 C 68 18 155/76 H 94 09/22/16 07:46 09/22/16 07:46 09/22/16 07:46 09/22/16 07:46 09/22/16 07:46 Laboratory Results 09/20/16 08:09 09/20/16 04:30 09/21/16 09/22/16 09/23/16 04:59 05:59 05:59 Intake Total Output Total Balance PT 21.6 SEC (12.0-15.0) H 09/22/16 04:35 INR 1.87 (0.83-1.16) H 09/22/16 04:35 ICD10 Worksheet Patient Problems: Problems Problem Status Onset Occlusion of right brachial artery Acute
[2016-09-22] MEDS: NITROGLYCERIN 0.4 MG/HR PATCH TD SCH (10:26)
[2016-09-23] MEDS ORDERED: ALENDRONATE SODIUM 70 MG TAB PO SCH (07:00)
== END 2016-09-22 12:21 | disposition home or self-care (01) | DRG 254 ==
LOC: FIMAGING 10:22 → F2N 16:49 → EDSTATUS 18:00 → F2N 19:25 → F3E 09-21 13:48
PROVIDERS: ADMIT Surgery; ATTEND Surgery
PROC: 3E06317 Introduction of Other Thrombolytic into Central Artery, Percutaneous Approach (ICD-10-PCS; 2016-09-16)
PROC: 03753ZZ Dilation of Right Axillary Artery, Percutaneous Approach (ICD-10-PCS; principal; 2016-09-18)
PROC: 03773ZZ Dilation of Right Brachial Artery, Percutaneous Approach (ICD-10-PCS; principal; 2016-09-18)
DX: T82.868A Thrombosis due to vascular prosthetic devices, implants and grafts, initial encounter (principal); Z86.711 Personal history of pulmonary embolism
CPT/HCPCS: 85520-90; C1725; C1757; C1760; C1769; C1892; C1894; J0360; J0690; J1170; J1644; J1650; J2250; J2310; J2405; J2720; J2930; J2997; J3010; J3490; Q9967

== ENCOUNTER 2016-09-24 09:18 | Observation (INO) | payer OTHER ==
--- NOTE | 2016-09-24 10:08 | EDPHY ---
H & P Time Seen by Provider: 09/24/16 09:37 HPI/ROS: CHIEF COMPLAINT: Right arm pain HISTORY OF PRESENT ILLNESS: 71-year-old female presents to the emergency department with concerns about reocclusion of her right brachial artery graft. The patient had graft place in June of 2016. She had occlusion on September 16, 2016 and had tPA lysis. She is on Lovenox and Coumadin now. She states that she was discharged from the hospital 2 days ago and was doing well and then this morning while she was in the shower she developed tingling in her hand. She now has pain in her entire right upper extremity. Her hand feels cold. She is worried about reoccluding the graft. She denies chest pain or difficulty breathing. She denies calf pain or swelling. Denies abdominal pain. Denies headache. She has also had a previous graft to the left brachial artery however she states that her left upper extremity is fine. No symptoms in her lower extremities bilaterally. No reported trauma. She has been taking her medication as prescribed including Coumadin and Lovenox. Last INR was on Friday, 2 days ago and was 1.8. REVIEW OF SYSTEMS: Constitutional: No fever, no chills. Eyes: No double or blurry vision. ENT: No sore throat. Respiratory: No cough, no shortness of breath. Cardiac: No chest pain. Gastrointestinal: No abdominal pain, vomiting or diarrhea. Genitourinary: No dysuria. Musculoskeletal: No neck or back pain. Skin: No rashes. Neurological: No headache. 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 Pham, hysterectomy, appendectomy, cholecystectomy, hernia repair Social History: , retired Smoking Status: Former smoker Physical Exam: General Appearance: Alert, no distress. 177/75 Eyes: Pupils equal and round. Extraocular motions are all intact. ENT: Mouth: Mucous membranes moist. Respiratory: No wheezing, rhonchi, or rales, lungs are clear to auscultation. Cardiovascular: Regular rate and rhythm. Gastrointestinal: Abdomen is soft and nontender, no masses, no rebound or guarding, bowel sounds normal. Neurological: Alert and oriented x 3, cranial nerves II through XII grossly intact Skin: Warm and dry, no rashes. Musculoskeletal: Nontender to palpate along the cervical, thoracic or lumbar spine. Neck is supple. Extremities: Full range of motion and no peripheral edema. There is a weak, thready pulse noted to the right radial aspect of the wrist. Strong bounding pulse noted to the radial aspect of the left wrist. The right hand is slightly close. Diffusely ecchymotic. It is tender to palpate diffusely in the right hand. She has full range of motion of her upper extremities. Full range of motion of lower extremities. No calf pain or swelling. Psychiatric: Patient is oriented X 3, there is no agitation. Constitutional: Initial Vital Signs Temperature (C) 36.4 C 09/24/16 09:31 Heart Rate 72 09/24/16 09:31 Respiratory Rate 20 09/24/16 09:31 Blood Pressure 177/75 H 09/24/16 09:31 O2 Sat (%) 98 09/24/16 09:31 O2 Delivery Mode Room Air Allergies/Adverse Reactions: No Known Allergies Allergy (Verified 09/24/16 09:30) Home Medications: Medication Instructions Recorded Aspirin [Aspirin 81mg (*)] 81 mg PO DAILY 06/07/16 Levothyroxine [Synthroid 75 mcg 75 mcg PO DAILY06 06/07/16 (*)] Multivitamins [Multivitamin (*)] 1 each PO DAILY 06/07/16 Alendronate Sodium [Fosamax 70 MG 70 mg PO MO@0700 09/16/16 (*)] Naproxen Sodium [Aleve 220 MG (*)] 440 mg PO DAILY 09/16/16 Enoxaparin [Lovenox 100 MG (*)] 100 mg SC BID #4 syr 09/22/16 NIFEdipine ER [Adalat CC 30 mg (*)] 30 mg PO DAILY #30 tab 09/22/16 Warfarin Sodium [Coumadin 5MG (*)] 5 mg PO DAILY@16 09/24/16 predniSONE [Prednisone] 30 mg PO DAILY 09/24/16 Medical Decision Making - Diagnostics Imaging: CT angiogram of the right upper extremity: 1. Moderate stenosis at the proximal anastomosis of the bypass graft right axillary region as well as mild to moderate stenosis about 3 cm distal to this. 2. Postoperative fluid collection probably representing seroma around the bypass graft for a length of 13 cm in the right upper arm. 3. Adequate distal runoff into the right forearm and hand. This was reported to me by Dr. Kelsey. ED Course/Re-evaluation: 71-year-old female presents with right arm pain and concerns about possible recurring occlusion. Patient was just discharged 2 days ago after she had a clot in her graft in the brachial artery. She has been on Lovenox and Coumadin. INR today is 2.45. Laboratory studies were drawn [place] [address] likely from the steroids. Patient was given IV morphine for pain relief. CT angiogram of the right upper extremity: 1. Moderate stenosis at the proximal anastomosis of the bypass graft right axillary region as well as mild to moderate stenosis about 3 cm distal to this. 2. Postoperative fluid collection probably representing seroma around the bypass graft for a length of 13 cm in the right upper arm. 3. Adequate distal runoff into the right forearm and hand. Patient will be admitted to the hospital to Dr. Cunningham with the plan to have stent placed by Dr. Kelsey in IR. The case was discussed with Dr. Royer Olivo, secondary supervising physician , who did not directly evaluate the patient but agrees with treatment and plan. Differential Diagnosis: Including but not limited to recurring thrombus, pulmonary embolism, DVT, arterial occlusion, stenosis - Data Points Laboratory Results: Laboratory Results 09/24/16 10:19 09/24/16 10:19 09/24/16 09/24/16 09/24/16 10:19 10:19 10:17 WBC 19.82 10^3/uL H 10^3/uL (3.80-9.50) RBC 3.23 10^6/uL L 10^6/uL (4.18-5.33) Hgb 10.0 g/dL L g/dL (12.6-16.3) POC Hgb 10.5 gm/dL L gm/dL (12.3-15.9) Hct 30.5 % L % (38.0-47.0) POC Hct 31 % L % (35.5-47.5) MCV 94.4 fL fL (81.5-99.8) MCH 31.0 pg pg (27.9-34.1) MCHC 32.8 g/dL g/dL (32.4-36.7) RDW 15.3 % H % (11.5-15.2) Plt Count 75 10^3/uL L 10^3/uL (150-400) MPV 10.2 fL fL (8.7-11.7) Neut % (Auto) Not Reported Lymph % (Auto) Not Reported Carroll % (Auto) Not Reported Eos % (Auto) Not Reported Baso % (Auto) Not Reported Nucleat RBC Rel Count 0.4 % H % (0.0-0.2) Absolute Neuts (auto) Not Reported Absolute Lymphs (auto) Not Reported Absolute Monos (auto) Not Reported Absolute Eos (auto) Not Reported Absolute Basos (auto) Not Reported Absolute Nucleated RBC 0.08 10^3/uL H 10^3/uL (0-0.01) Immature Gran % Not Reported Seg Neutrophils % 79 % % Band Neutrophils % 4 % % Lymphocytes % 13 % % Monocytes % 2 % % Eosinophils % 1 % % Myelocytes % 1 % % Immature Gran # Not Reported Absolute Seg Neuts 15.66 10^/uL H 10^/uL (1.70-6.50) Absolute Band Neuts 0.79 10^3/uL H 10^3/uL (0.00-0.70) Absolute Lymphocytes 2.58 10^3/uL 10^3/uL (1.00-3.00) Absolute Monocytes 0.40 10^3/uL 10^3/uL (0.30-0.80) Absolute Eosinophils 0.20 10^3/uL 10^3/uL (0.03-0.40) Absolute Myelocytes 0.20 10^3/mL H 10^3/mL (0.00-0.00) Atypical Lymphocytes 1+ H Toxic Granulation PRESENT H Platelet Estimate DECREASED L (ADEQ) Polychromasia 1+ H Smear Review By Pending PT INR APTT POC Sodium 143 mEq/L mEq/L (134-144) Sodium 142 mEq/L mEq/L (134-144) POC Potassium 3.3 mEq/L mEq/L (3.3-5.0) Potassium 3.4 mEq/L L mEq/L (3.5-5.2) POC Chloride 106 mEq/L mEq/L (96-108) Chloride 108 mEq/L mEq/L (97-110) Carbon Dioxide 26 mEq/l mEq/l (22-31) Anion Gap 8 mEq/L mEq/L (8-16) POC BUN 29 mg/dL H mg/dL (7-23) BUN 31 mg/dL H mg/dL (7-23) Creatinine 1.1 mg/dL H mg/dL (0.6-1.0) POC Creatinine 1.2 mg/dL mg/dL (0.6-1.2) Estimated GFR 49 Glucose 90 mg/dL mg/dL (70-100) POC Glucose 92 mg/dL mg/dL (70-100) Calcium 8.3 mg/dL L mg/dL (8.5-10.4) 09/24/16 10:00 WBC RBC Hgb POC Hgb Hct POC Hct MCV MCH MCHC RDW Plt Count MPV Neut % (Auto) Lymph % (Auto) Carroll % (Auto) Eos % (Auto) Baso % (Auto) Nucleat RBC Rel Count Absolute Neuts (auto) Absolute Lymphs (auto) Absolute Monos (auto) Absolute Eos (auto) Absolute Basos (auto) Absolute Nucleated RBC Immature Gran % Seg Neutrophils % Band Neutrophils % Lymphocytes % Monocytes % Eosinophils % Myelocytes % Immature Gran # Absolute Seg Neuts Absolute Band Neuts Absolute Lymphocytes Absolute Monocytes Absolute Eosinophils Absolute Myelocytes Atypical Lymphocytes Toxic Granulation Platelet Estimate Polychromasia Smear Review By PT 26.8 SEC H SEC (12.0-15.0) INR 2.45 H (0.83-1.16) APTT 42.5 SEC H SEC (23.0-38.0) POC Sodium Sodium POC Potassium Potassium POC Chloride Chloride Carbon Dioxide Anion Gap POC BUN BUN Creatinine POC Creatinine Estimated GFR Glucose POC Glucose Calcium Medications Given: Discontinued Medications Morphine Sulfate (Morphine) 4 mg IVP EDNOW ONE Stop: 09/24/16 10:53 Last Admin: 09/24/16 11:04 Dose: 4 mg Point of Care Test Results: 09/24/16 10:17 POC Sodium 143 POC Potassium 3.3 POC Chloride 106 POC BUN 29 H POC Creatinine 1.2 POC Glucose 92 Departure - Departure Disposition: [facility] Acute Clinical Impression: Right arm pain, Stenosis of subclavian artery Condition: Good
[2016-09-24 10:18] LABS: INR 2.45 (0.83-1.16); PROTIME(PATIENT) 26.8 SEC (12.0-15.0)
[2016-09-24 10:19] LABS: APTT 42.5 SEC (23.0-38.0)
[2016-09-24 10:27] LABS: ABSOLUTE NRBC COUNT 0.08 10^3/uL (0-0.01); ADD DIFF? YES; ADD MORPH? NO; ADD SCAN? NO; ATYPICAL LYMPHOCYTE FLAG 10 (0-99); FRAGMENT RBC FLAG 0 (0-99); HEMATOCRIT 30.5 % (38.0-47.0); LEFT SHIFT FLG 30 (0-99); LIPEMIA HEMOLYSIS FLAG 80 (0-99); MEAN CELL HEMOGLOBIN CONCENTR. 32.8 g/dL (32.4-36.7); MEAN CELL VOLUME 94.4 fL (81.5-99.8); MEAN PLATELET VOLUME 10.2 fL (8.7-11.7); NRBC-AUTO% 0.4 % (0.0-0.2); PLATELET CLUMPS FLAG 0 (0-99); PLATELET COUNT 75 10^3/uL (150-400); RED BLOOD CELL COUNT 3.23 10^6/uL (4.18-5.33); RED CELL DISTRIBUTION WIDTH 15.3 % (11.5-15.2)
[2016-09-24 11:04] LABS: ANION GAP 8 mEq/L (8-16); CALCIUM 8.3 mg/dL (8.5-10.4); CARBON DIOXIDE 26 mEq/l (22-31); CHLORIDE 108 mEq/L (97-110); CREATININE 1.1 mg/dL (0.6-1.0); GLOMERULAR FILTRATION RATE 49; GLUCOSE 90 mg/dL (70-100); POTASSIUM 3.4 mEq/L (3.5-5.2); SODIUM 142 mEq/L (134-144)
[2016-09-24] MEDS ORDERED: IOPAMIDOL (ISOVUE-300) 100 ML BTL IV ONE ×2 (11:16→17:18)
[2016-09-24 11:22] LABS: PLATELET ESTIMATE DECREASED (ADEQ); POLYCHROMASIA 1+; TOXIC GRANULATION PRESENT
[2016-09-24] MEDS ORDERED: HYDROmorphONE/DILAUDID 1 MG/ML SYR IVP PRN (15:57)
[2016-09-24] MEDS ORDERED: WARFARIN SODIUM 2.5 MG TAB PO SCH (16:00)
[2016-09-24] MEDS ORDERED: D5W 1/2 NS W/ 20 KCl/L 1,000 ML IV SCH (16:00)
--- NOTE | 2016-09-24 16:38 | GHP ---
[f rep st] HISTORY AND PHYSICAL DATE OF ADMISSION: 09/24/2016 CHIEF COMPLAINT: Right upper extremity pain. HISTORY OF PRESENT ILLNESS: This is a 71-year-old female, well known to the surgery service here. Briefly, she initially underwent surgery by my partner, Dr. Pham, in the past, the right side for a brachial artery occlusion. At that time, she had bypass with a synthetic graft. She was subsequently readmitted to the hospital on the of this month after returning to the office complaining of returning numbness, coolness and loss of pulse on her distal right upper extremity. She was subsequently admitted to the hospital, started on IV anticoagulants, and taken to the IR suite, where she successfully underwent lysis over multiple days and reestablishment of flow through her bypass with excellent runoff into the remainder of her hand with palpable pulses into her wrist. She was subsequently discharged to home this previous Friday. She states that for those past few days, she felt well. Called the clinic this morning complaining of repeat symptoms, including fairly excruciating pain in the right upper extremity starting in the biceps on down to the hand, which was persistent. She was subsequently referred to the emergency department where there it was apparent that she was having a significant amount of pain, however, did have persistent initially signals and then pulses into her right upper extremity. She underwent CT scan imaging which showed that she did have persistent flow through her bypass; however, she did have 2 what appeared to be flow-limiting lesions, one the proximal axillary and the other one at the takeoff of the bypass graft. She denies having fevers and chills and otherwise feels well but is concerned about the pain. 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 PAST SURGICAL HISTORY: Both right and left brachial artery occlusions, status post bypass per Dr. Pham with synthetic graft, hysterectomy, appendectomy, cholecystectomy and hernia repair. SOCIAL HISTORY: Former smoker, quit in 2005. Denies illicit drug use. REVIEW OF SYSTEMS: A full 10-point review was performed and unless explicitly stated above is otherwise negative. PHYSICAL EXAMINATION: GENERAL: Alert, oriented, in no acute distress. VITAL SIGNS: Temperature 36.4, blood pressure 170/75, heart rate 72. She is 98% on room air. CV: She has a regular rate and rhythm without any murmurs. LUNGS: Clear to auscultation bilaterally. ABDOMEN: Obese, soft, nondistended, nontender. EXTREMITIES: Her right upper extremity is warm. Her previous radial artery stick site is clean, dry and intact. She does have a palpable radial pulse and ulnar pulse. Her strength and sensation are symmetrical on both upper extremities. Her right groin stick site has a little bit of a seroma leak from it but otherwise appears clean, dry and intact. There is some surrounding ecchymosis adjacent to this. LABORATORY DATA: Leukocytosis to 19,000, H and H 10 and 30, platelets 75. Chemistry is unremarkable. IMAGING: Includes a CTA of her upper extremity which shows moderate stenosis at the proximal anastomosis of the bypass graft with [id number] stenosis 3 cm proximal to this with adequate distal runoff into the right forearm. ASSESSMENT AND PLAN: A 71-year-old female with threatened right upper extremity. I have discussed the case with Dr. Jevon Kelsey. She will be subsequently admitted to the surgery service. She will be taken to the IR suite for a catheter-directed angioplasty and likely stent placement to these flow-limiting lesions, which will likely cause resolution of her pain. The risks and benefits were discussed with her. There is a chance that this could cause her graft to go down completely, in which case she would need operative intervention. This was discussed briefly with the patient. On admission today. Given the fact that her INR is therapeutic, we will not start her on a heparin drip, although likely she will be on some kind of IV anticoagulant postoperatively until we can get her stable on oral equivalent dose postoperatively. /[id number]/MODL MTDD
[2016-09-24] MEDS ORDERED: MIDAZOLAM 2 MG/2 ML VIAL ONE ×2 (16:56→17:38)
[2016-09-24] MEDS ORDERED: hydrALAZINE 20 MG/ML VIAL ONE ×2 (17:09→18:28)
[2016-09-24] MEDS ORDERED: fentaNYL 100 MCG/2 ML INJ ONE (17:38)
[2016-09-24] MEDS ORDERED: NITROGLYCERIN/D5W 50 MG/250 ML BOTTLE IV ONE (18:29)
[2016-09-24] MEDS ORDERED: HEPARIN 10,000 UNIT/10 ML MDV ONE (18:29)
--- NOTE | 2016-09-24 19:13 | POSTOPPROG ---
Post Op Note Date of Operation: 09/24/16 Surgeon: Jevon Kelsey Anesthesia: IV Sedation Pre-op Diagnosis: Stenosis of right axillary artery Post-op Diagnosis: same Indication: Transient ischemia of right arm today Procedure: Stenting of right axillary artery Findings: Dissection stented open with flexible self-expanding 7 mm diameter stents Inf/Abcess present in the surg proc area at time of surgery?: No EBL: 50-100 Complications: 0
[2016-09-25] MEDS ORDERED: hydrALAZINE 20 MG/ML VIAL IVP ONE (04:30)
[2016-09-25] MEDS ORDERED: LEVOTHYROXINE 75 MCG TAB PO SCH (06:00)
--- NOTE | 2016-09-25 08:38 | SOAPPROG ---
SOAP Progress Note Assessment/Plan: Assessment: 1. Good results from stenting right axillary artery. 2. Left groin OK 3. Hypertension. Plan: 1. Home today. 2. Discussed BP with patient and Fransisca Woodall. 3. Resume warfarin today. 09/25/16 08:35 09/25/16 08:42 09/25/16 08:43 Subjective: Feeling good. Looking forward to [place] toast for breakfast. Trace residual pain in right little finger distal phalanx. No pain in arm. Objective: Vital Signs Temp Pulse Resp BP Pulse Ox 36.7 C 62 20 179/87 H 96 09/25/16 08:00 09/25/16 08:00 09/25/16 08:00 09/25/16 08:00 09/25/16 08:00 09/24/16 09/25/16 09/26/16 05:59 05:59 05:59 Intake Total 200 Output Total 800 Balance -600 PT 26.8 SEC (12.0-15.0) H 09/24/16 10:00 INR 2.45 (0.83-1.16) H 09/24/16 10:00 Right brachial, radial, and ulnar pulses are all 4+. Right fingers are warm and pink. Capillary refill 1 s to all fingers. Motion and sensation grossly intact. Left groin dry, with small ecchymosis medially. No hematoma. Large ecchymosis right groin and upper leg from procedure last week. ICD10 Worksheet Patient Problems: Problems Problem Status Onset Right arm pain Acute Stenosis of subclavian artery Acute Occlusion of right brachial artery Acute
[2016-09-25] MEDS ORDERED: NIFEdipine ER 30 MG TAB PO SCH (09:00)
[2016-09-25] MEDS ORDERED: predniSONE 10 MG TAB PO SCH (09:00)
--- NOTE | 2016-09-25 10:06 | SOAPPROG ---
SOAP Progress Note Assessment/Plan: Assessment: 71yo female s/p IR axillary stent placement, in setting of recent B/L brachial artery occlusions. Vasculitis. Arm feels so much better, looking forward to going home PE awake sitting up alert comfortable R Arm warm, radial pulse to palpation, FROM fingers/hand Plan: possibly home today, will discuss with medicine -- most likely needs further HTN treatment 09/25/16 10:03 Objective: Vital Signs Temp Pulse Resp BP Pulse Ox 36.7 C 62 20 179/87 H 96 09/25/16 08:00 09/25/16 08:00 09/25/16 08:00 09/25/16 09:36 09/25/16 08:00 09/24/16 09/25/16 09/26/16 05:59 05:59 05:59 Intake Total 200 Output Total 800 Balance -600 PT 26.8 SEC (12.0-15.0) H 09/24/16 10:00 INR 2.45 (0.83-1.16) H 09/24/16 10:00 ICD10 Worksheet Patient Problems: Problems Problem Status Onset Right arm pain Acute Stenosis of subclavian artery Acute Occlusion of right brachial artery Acute
--- NOTE | 2016-09-25 10:15 | SOAPPROG ---
[facility] Progress Note Assessment/Plan: Assessment: 71yo female s/p IR axillary stent placement, in setting of recent B/L brachial artery occlusions. Vasculitis. Arm feels so much better, looking forward to going home PE awake sitting up alert comfortable R Arm warm, radial pulse to palpation, FROM fingers/hand Plan: possibly home today, will discuss with medicine -- most likely needs further HTN treatment 09/25/16 10:03 09/25/16 10:14 started Norvasc 2.5mg, will reassess in couple hours. Objective: Vital Signs Temp Pulse Resp BP Pulse Ox 36.7 C 62 20 179/87 H 96 09/25/16 08:00 09/25/16 08:00 09/25/16 08:00 09/25/16 09:36 09/25/16 08:00 09/24/16 09/25/16 09/26/16 05:59 05:59 05:59 Intake Total 200 Output Total 800 Balance -600 PT 26.8 SEC (12.0-15.0) H 09/24/16 10:00 INR 2.45 (0.83-1.16) H 09/24/16 10:00 ICD10 Worksheet Patient Problems: Problems Problem Status Onset Right arm pain Acute Stenosis of subclavian artery Acute Occlusion of right brachial artery Acute
[2016-09-25 12:32] VITALS: BP 164/69; PULSE 63; RESP 18; TEMP 98.4; O2SAT 94
[2016-09-25] MEDS ORDERED: WARFARIN SODIUM 5 MG TAB PO SCH (16:00)
== END 2016-09-25 14:11 | disposition home or self-care (01) ==
LOC: F3E 15:08
PROVIDERS: ADMIT Surgery; ATTEND Surgery
PROC: 037 Upper Arteries, Dilation (ICD-10-PCS; principal; 2016-09-24 18:50)
PROC: B31H1ZZ Fluoroscopy of Right Upper Extremity Arteries using Low Osmolar Contrast (ICD-10-PCS; principal; 2016-09-24 18:50)
DX: T82.858A Stenosis of other vascular prosthetic devices, implants and grafts, initial encounter (principal); I70.298 Other atherosclerosis of native arteries of extremities, other extremity; Z86.711 Personal history of pulmonary embolism
CPT/HCPCS: 37236; 73206; 75710; 96374; 99152; 99153; 99285; C1769; C1876; C1892; G0378; J0360; J1644; J2250; J3010; Q9967; 82947-QW

== ENCOUNTER 2016-09-27 09:37 | Inpatient (IN) | payer OTHER ==
--- NOTE | 2016-09-27 10:06 | EDPHY ---
H & P HPI/ROS: CHIEF COMPLAINT: Pain, numbness, decreased pulse right upper extremity HISTORY OF PRESENT ILLNESS: The patient is a 71-year-old female with an extensive recent history upper extremity clotting. The patient has had pulmonary embolus in the past. In June of 2016 the patient had bilateral brachial artery bypass surgery by Dr. Pham. On 09/16/2016 the patient was admitted to the hospital with right upper extremity clot. She was taken to Interventional Radiology by Dr. Kelsey. She was discharged on Friday. She has been compliant with her Coumadin. On 09/24/2016, she came to the ER and was found to have significant arterial disease. 2 stents were placed by Dr. Kelsey. She was discharged on 09/25/2016. This morning she developed similar right arm pain. She describes a "stabbing" pain in her right upper arm. She also has discomfort down into her hand. She has increased numbness and tingling. She reports that she has had a decreased pulse. No recent trauma. REVIEW OF SYSTEMS: My complete review of systems is negative except as mentioned in the HPI. Past Medical/Surgical History: Includes pulmonary embolus, arterial occlusion Past surgical history: Includes brachial artery bypass Social history: Patient does not smoke. She is here with her . Smoking Status: Former smoker Physical Exam: Vitals noted GENERAL: Well-appearing, in no acute distress, alert. HEENT: Eyes normal to inspection, normal pharynx, no signs of dehydration. NECK: No thyromegaly, no lymphadenopathy, supple. RESPIRATORY: Clear to auscultation bilaterally, no rales, rhonchi or wheezing. CVS: Regular rate and rhythm, no rubs, murmurs, or gallops. ABDOMEN: Soft, nontender, nondistended, no organomegaly. BACK: Normal to inspection, no CVA tenderness. SKIN: Normal color, no rash, warm, dry. No pallor. EXTREMITIES: the patient has bilateral axilla scars from her brachial artery bypa bilaterally. The patient has a decrease radial and ulnar pulse on the right upper extremity. The right hand is pale when compared to the left. Patient's upper extremities are of equal size. There is no discoloration extending up from the Hand. NEURO/PSYCH: Alert and oriented x3, normal mood and affect, See extremity neuro exam. Constitutional: Initial Vital Signs Temperature (C) 36.6 C 09/27/16 09:39 Heart Rate 70 09/27/16 09:39 Respiratory Rate 18 09/27/16 09:39 Blood Pressure 172/43 H 09/27/16 09:39 O2 Sat (%) 96 09/27/16 09:39 O2 Delivery Mode Room Air Allergies/Adverse Reactions: No Known Allergies Allergy (Verified 09/27/16 09:38) Home Medications: Medication Instructions Recorded Aspirin [Aspirin 81mg (*)] 81 mg PO DAILY 06/07/16 Multivitamins [Multivitamin (*)] 1 each PO DAILY 06/07/16 Alendronate Sodium [Fosamax 70 MG 70 mg PO MO@0700 09/16/16 (*)] Levothyroxine [Synthroid 75 mcg 75 mcg PO DAILY06 #0 tab 09/25/16 (*)] NIFEdipine ER [Adalat CC 30 mg (*)] 30 mg PO DAILY #0 tab 09/25/16 amLODIPine BESYLATE [Norvasc 2.5 2.5 mg PO DAILY #0 tab 09/25/16 mg (*)] predniSONE 30 mg PO DAILY #0 tab 09/25/16 Cholecalciferol Vit D3 [Vitamin D3 2,000 units PO DAILY 09/27/16 2000 units tab (OTC)] Warfarin Sodium [Coumadin 5MG (*)] 5 mg PO DAILY@16 09/27/16 Medical Decision Making ED Course/Re-evaluation: In the emergency department I discussed possible etiologies with the patient. Upon arrival I paged Dr. Guillen. He promptly came to the emergency department to evaluate the patient. He discussed the case with Dr. Kelsey from interventional Radiology. They recommended the patient undergo CT angio imaging rather than going directly to the IR suite or being transferred. CT was ordered and contacted by phone to expedite study. I discussed this plan with the patient. I discussed the case with the charge nurse as well as the patient's nurse to obtain a rapid IV for imaging. I again paged CT imaging to obtain the patient's study. Laboratory studies were obtained. [place] [address]. Her hemotcrit was low at 29. The patient had a slightly low potassium of 3.3. Her INR was 1.89. On recheck the patient's hand color had improved. It was pink. She has a slight radial pulse. I discussed the case with Dr. Cunningham's Pa. He recommended admission to their service with systemic heparin. He placed ordered in the system. I discussed this with the nurse to expedite treatment. I discussed the plan with the patient. On re-evaluation her hand has better color. His pain. She had no numbness or tingling. She had a slight radial pulse. Heparin is running. 1225: I rechecked the patient. She was complaining of hand pain. She still had a slight radial pulse. Her hand was not pale. Mild diffuse hand tenderness to palpation. 1250: I rechecked the patient. She has discoloration on all of her fingertips. Her hand is still warm. She has a slight radial pulse. Paged Dr. Cunningham and Dr. Kelsey. Differential Diagnosis: My differential includes but is not limited to arterial occlusion, venous occlusion, stent failure, hematoma, hypokalemia, anemia - Data Points Laboratory Results: Laboratory Results 09/27/16 10:02 09/27/16 10:02 09/27/16 09/27/16 09/27/16 10:02 10:02 10:02 WBC 22.76 10^3/uL H 10^3/uL (3.80-9.50) RBC 3.06 10^6/uL L 10^6/uL (4.18-5.33) Hgb 9.7 g/dL L g/dL (12.6-16.3) Hct 29.6 % L % (38.0-47.0) MCV 96.7 fL fL (81.5-99.8) MCH 31.7 pg pg (27.9-34.1) MCHC 32.8 g/dL g/dL (32.4-36.7) RDW 16.2 % H % (11.5-15.2) Plt Count 120 10^3/uL L 10^3/uL (150-400) MPV 10.4 fL fL (8.7-11.7) Neut % (Auto) Not Reported Lymph % (Auto) Not Reported Atkinson % (Auto) Not Reported Eos % (Auto) Not Reported Baso % (Auto) Not Reported Nucleat RBC Rel Count 0.4 % H % (0.0-0.2) Absolute Neuts (auto) Not Reported Absolute Lymphs (auto) Not Reported Absolute Monos (auto) Not Reported Absolute Eos (auto) Not Reported Absolute Basos (auto) Not Reported Absolute Nucleated RBC 0.09 10^3/uL H 10^3/uL (0-0.01) Immature Gran % Not Reported Seg Neutrophils % 87 % % Band Neutrophils % 2 % % Lymphocytes % 7 % % Monocytes % 3 % % Eosinophils % 1 % % Immature Gran # Not Reported Absolute Seg Neuts 19.80 10^/uL H 10^/uL (1.70-6.50) Absolute Band Neuts 0.46 10^3/uL 10^3/uL (0.00-0.70) Absolute Lymphocytes 1.59 10^3/uL 10^3/uL (1.00-3.00) Absolute Monocytes 0.68 10^3/uL 10^3/uL (0.30-0.80) Absolute Eosinophils 0.23 10^3/uL 10^3/uL (0.03-0.40) Platelet Estimate DECREASED L (ADEQ) Polychromasia 1+ H Oval Macrocytes 1+ H PT 21.8 SEC H SEC (12.0-15.0) INR 1.89 H (0.83-1.16) APTT 26.8 SEC SEC (23.0-38.0) Sodium 138 mEq/L mEq/L (134-144) Potassium 3.3 mEq/L L mEq/L (3.5-5.2) Chloride 104 mEq/L mEq/L (97-110) Carbon Dioxide 21 mEq/l L mEq/l (22-31) Anion Gap 13 mEq/L mEq/L (8-16) BUN 23 mg/dL mg/dL (7-23) Creatinine 1.0 mg/dL mg/dL (0.6-1.0) Estimated GFR 55 Glucose 116 mg/dL H mg/dL (70-100) Calcium 9.1 mg/dL mg/dL (8.5-10.4) Departure - Departure Disposition: [facility] Acute Clinical Impression: Arterial occlusion, Right upper extremity, acute Condition: Good
[2016-09-27 10:17] LABS: ABSOLUTE NRBC COUNT 0.09 10^3/uL (0-0.01); ADD DIFF? YES; ADD MORPH? NO; ADD SCAN? NO; ATYPICAL LYMPHOCYTE FLAG 0 (0-99); FRAGMENT RBC FLAG 0 (0-99); HEMATOCRIT 29.6 % (38.0-47.0); HEMOGLOBIN 9.7 g/dL (12.6-16.3); LEFT SHIFT FLG 40 (0-99); LIPEMIA HEMOLYSIS FLAG 80 (0-99); MEAN CELL HEMOGLOBIN 31.7 pg (27.9-34.1); MEAN CELL HEMOGLOBIN CONCENTR. 32.8 g/dL (32.4-36.7); MEAN CELL VOLUME 96.7 fL (81.5-99.8); MEAN PLATELET VOLUME 10.4 fL (8.7-11.7); NRBC-AUTO% 0.4 % (0.0-0.2); PLATELET CLUMPS FLAG 20 (0-99); PLATELET COUNT 120 10^3/uL (150-400); RED BLOOD CELL COUNT 3.06 10^6/uL (4.18-5.33); RED CELL DISTRIBUTION WIDTH 16.2 % (11.5-15.2)
[2016-09-27] MEDS ORDERED: IOPAMIDOL (ISOVUE 370) 100 ML BTL IV ONE (10:21)
[2016-09-27 10:27] LABS: APTT 26.8 SEC (23.0-38.0); INR 1.89 (0.83-1.16); PROTIME(PATIENT) 21.8 SEC (12.0-15.0)
[2016-09-27 10:36] LABS: ANION GAP 13 mEq/L (8-16); CALCIUM 9.1 mg/dL (8.5-10.4); CARBON DIOXIDE 21 mEq/l (22-31); CHLORIDE 104 mEq/L (97-110); GLOMERULAR FILTRATION RATE 55; GLUCOSE 116 mg/dL (70-100); POTASSIUM 3.3 mEq/L (3.5-5.2); SODIUM 138 mEq/L (134-144)
[2016-09-27 10:43] LABS: PLATELET ESTIMATE DECREASED (ADEQ)
[2016-09-27 10:44] LABS: MACROCYTES 1+; POLYCHROMASIA 1+
[2016-09-27] MEDS ORDERED: HEPARIN 10,000 UNIT/10 ML MDV IVP PRN (11:32)
[2016-09-27] MEDS ORDERED: HEPARIN 10,000 UNIT/10 ML MDV IVP ONE (11:32)
[2016-09-27] MEDS ORDERED: HEPARIN/DEXTROSE 25,000 UNIT/500 ML BAG IV ONE (11:47)
[2016-09-27] MEDS ORDERED: HEPARIN 10,000 UNIT/10 ML MDV ONE (11:48)
[2016-09-27] MEDS: HEPARIN/DEXTROSE 500 ML IV SCH (12:11)
[2016-09-27] MEDS ORDERED: HYDROmorphONE/DILAUDID 1 MG/ML SYR ONE (12:44)
[2016-09-27] MEDS ORDERED: HYDROmorphONE/DILAUDID 1 MG/ML SYR IVP PRN (12:54)
[2016-09-27] MEDS: NIFEdipine ER 30 MG TAB PO SCH (15:29)
--- NOTE | 2016-09-27 15:32 | GHP ---
[f rep st] HISTORY AND PHYSICAL DATE OF ADMISSION: 09/27/2016 CHIEF COMPLAINT: Right arm pain. HISTORY OF PRESENT ILLNESS: This is a 71-year-old female well known to me and the surgical service. 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 The l eft arm has done well. She has now been intervened upon twice for right upper extremity pain and lo ss of pulses, the most recently of which was earlier this week. The patient was subsequently discha rged home on Friday of this week after going to the interventional suite where a covered stent wa s placed over an occlusion proximal to her bypass going into her bypass with excellent outflow and g ood pulses at the end of the procedure. She was sent home on her Coumadin dose only to call the cli jazmin this morning stating that she had no pulses on that arm; however, she did not have any significa nt pain there. She subsequently presented to the emergency department where her right upper extremi ty was markedly cooler than the left and she had no appreciable pulses in the radial ulnar or brachi al distribution. She subsequently underwent some labs which showed that her INR was subtherapeutic at 1.89. She also had a CTA which did show that there was thrombus organizing within the graft like ly causing her outflow issues. She denied having pain but stated that she was concerned given the f act that the arm was cooler and had loss of pulses. PAST MEDICAL HISTORY: Pulmonary embolisms, bilateral brachii artery bypass for both upper extremiti es. 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 Luis tripathi with synthetic graft. She had a hysterectomy, appendectomy, cholecystectomy and hernia repair. SOCIAL HISTORY: She is a former smoker, quit in 2005. Denies illicit drug use. REVIEW OF SYSTEMS: A full 10-point review was performed, and unless explicitly stated above, is oth erwise negative. PHYSICAL EXAM: VITAL SIGNS: Blood pressure 150/90, heart rate 69, temperature 36.6. She is 96% on room air. GENERAL: She is alert and oriented in no acute distress. CV: She has a regular rate a nd rhythm. LUNGS: Clear to auscultation bilaterally. ABDOMEN: Soft, nondistended. Both groins h ave significant ecchymoses consistent with her recent catheterization. EXTREMITIES: Her right uppe r extremity is cool when compared to the left. There is no palpable radial, ulnar or brachial pulse . There are weak biphasic signals in all those distributions. Strength and neuro are intact to bot h upper extremities. LABS: Show a leukocytosis to 22,000, H and H of 9 and 29 respectively. Subtherapeutic INR at 1.89. CTA shows likely organizing thrombus within the graft. She does have preserved in and outflow to the remainder of the extremity. 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 I discus sed the case at length with her interventional radiologist, Dr. Jevon Kelsey. Plan at this point in time we will be to admit the patient to the surgical service, start her on a heparin drip with janet miner to try and resolve the organizing thrombus. The feeling that with getting her therapeutic and o n a heparin drip, she will more than likely fix this on her own. If the patient progresses or sebastian nues to have worsening pain, she may need to go back to the IR suite for repeat revascularization of the right upper extremity. The patient understands this and wishes to proceed. /[id number]/MODL
[2016-09-27] MEDS ORDERED: WARFARIN SODIUM 5 MG TAB PO SCH ×2 (16:00)
[2016-09-27] MEDS: HYDROmorphONE/DILAUDID 1 MG/ML SYR IVP PRN ×2 (16:31→20:14)
[2016-09-27] MEDS ORDERED: HYDROCODONE/APAP 5/325 TAB PO PRN (17:06)
[2016-09-27] MEDS: OXYCODONE/APAP 5/325 TAB PO PRN ×2 (17:30→21:41)
--- NOTE | 2016-09-27 19:33 | SOAPPROG ---
SOAP Progress Note Assessment/Plan: Assessment: Significant improvement in ischemia of right hand. Plan: 1. Continue systemic anticoagulation. 2. Target INR 3.0--4.0. 09/27/16 19:29 Subjective: Pain improving. Patient frustated by recurring problems. We discussed subtherapeutic warfarin as contributing factor this time. Objective: Pulses of right arm Brachial 2+, radial 2+, ulnar 3+. Capillary refill 2 seconds in thumb and little finger, 3-4 seconds in other fingers, which are tender to touch. Vital Signs Temp Pulse Resp BP Pulse Ox 37.4 C 80 19 174/95 H 95 09/27/16 14:42 09/27/16 14:33 09/27/16 14:33 09/27/16 16:52 09/27/16 14:33 PT 21.8 SEC (12.0-15.0) H 09/27/16 10:02 INR 1.89 (0.83-1.16) H 09/27/16 10:02 ICD10 Worksheet Patient Problems: Problems Problem Status Onset Arterial occlusion Acute Occlusion of right brachial artery Acute Right arm pain Acute Stenosis of subclavian artery Acute
[2016-09-27] MEDS ORDERED: hydrALAZINE 20 MG/ML VIAL IVP PRN (21:43)
[2016-09-27] MEDS ORDERED: oxyCODONE IR 5 MG TAB PO PRN (22:22)
[2016-09-28] MEDS: LEVOTHYROXINE 75 MCG TAB PO SCH (06:13)
[2016-09-28] MEDS: OXYCODONE/APAP 5/325 TAB PO PRN ×2 (06:13→22:08)
[2016-09-28] MEDS: HYDROmorphONE/DILAUDID 1 MG/ML SYR IVP PRN (09:14)
[2016-09-28] MEDS: HEPARIN/DEXTROSE 500 ML IV SCH (09:20)
[2016-09-28] MEDS: predniSONE 10 MG TAB PO SCH (09:21)
[2016-09-28] MEDS: NIFEdipine ER 30 MG TAB PO SCH (09:21)
[2016-09-28] MEDS: ASPIRIN 81 MG CHEWABLE TAB PO SCH (09:22)
[2016-09-28] MEDS ORDERED: WARFARIN SODIUM 2.5 MG TAB PO ONE ×2 (16:00→18:00)
--- NOTE | 2016-09-28 23:13 | SOAPPROG ---
SOAP Progress Note Assessment/Plan: Assessment: 71 yo with brachial artery occlusion. Recent R Axillary stent Presented without pulse on right arm. Heparin drip has improved pulse and symptoms greatly continue heparin drip. INR may need to be greater than 2.5 to keep graft patent Pharmacy to dose Warfarin S: Still some pain at right fingertips but improved. Hand is warm. Excellent radial pulses Plan: 09/28/16 23:11 Objective: Vital Signs Temp Pulse Resp BP Pulse Ox 36.8 C 79 14 156/52 H 94 09/28/16 19:29 09/28/16 19:29 09/28/16 19:29 09/28/16 19:29 09/28/16 19:29 09/27/16 09/28/16 09/29/16 05:59 05:59 05:59 Intake Total 350 643 Balance 350 643 PT 21.8 SEC (12.0-15.0) H 09/27/16 10:02 INR 1.89 (0.83-1.16) H 09/27/16 10:02 Physical Exam - Physical Exam General Appearance: WD/WN, alert, no apparent distress, mild distress EENT: PERRL/EOMI, normal ENT inspection, pharynx normal Respiratory: lungs clear, normal breath sounds Cardiac/Chest: regular rate, rhythm Skin: warm/dry ICD10 Worksheet Patient Problems: Problems Problem Status Onset Arterial occlusion Acute Occlusion of right brachial artery Acute Right arm pain Acute Stenosis of subclavian artery Acute
[2016-09-29] MEDS: LEVOTHYROXINE 75 MCG TAB PO SCH (05:23)
[2016-09-29 05:37] LABS: PLATELET COUNT 23 10^3/uL (150-400)
[2016-09-29 05:40] LABS: INR 3.07 (0.83-1.16); PROTIME(PATIENT) 32.1 SEC (12.0-15.0)
[2016-09-29 06:38] LABS: PLATELET ESTIMATE DECREASED (ADEQ)
[2016-09-29] MEDS: predniSONE 10 MG TAB PO SCH (10:24)
[2016-09-29] MEDS: NIFEdipine ER 30 MG TAB PO SCH (10:25)
[2016-09-29 11:08] LABS: HEMATOCRIT 25.8 % (38.0-47.0); HEMOGLOBIN 8.6 g/dL (12.6-16.3); LIPEMIA HEMOLYSIS FLAG 80 (0-99); MEAN CELL HEMOGLOBIN CONCENTR. 33.3 g/dL (32.4-36.7); MEAN CELL VOLUME 95.9 fL (81.5-99.8); PLATELET CLUMPS FLAG 80 (0-99); RED BLOOD CELL COUNT 2.69 10^6/uL (4.18-5.33); RED CELL DISTRIBUTION WIDTH 17.2 % (11.5-15.2)
[2016-09-29 11:12] LABS: PLATELET COUNT 25 10^3/uL (150-400)
[2016-09-29 11:45] LABS: PLATELET ESTIMATE DECREASED (ADEQ)
[2016-09-29] MEDS: ASPIRIN 81 MG CHEWABLE TAB PO SCH (13:49)
--- NOTE | 2016-09-29 15:20 | SOAPPROG ---
SOAP Progress Note Assessment/Plan: Assessment: 71 yo with brachial artery occlusion. Recent R Axillary stent Presented without pulse on right arm. INR may need to be greater than 2.5 to keep graft patent Pharmacy to dose Warfarin Was on Heparin now Platelets are 25 - looks like heparin induced thrombocytopenia. Stopped Heparin. Unable to get lab today for HIT. Will send off tomorrow S: Able to eat with right hand. Fingertips still runner but improved. Plan: 09/28/16 23:11 09/29/16 15:16 Objective: Vital Signs Temp Pulse Resp BP Pulse Ox 37.3 C 67 17 148/64 H 94 09/29/16 11:32 09/29/16 11:32 09/29/16 11:32 09/29/16 11:32 09/29/16 11:32 Laboratory Results 09/29/16 10:54 09/28/16 09/29/16 09/30/16 05:59 05:59 05:59 Intake Total 350 1267 Balance 350 1267 PT 32.1 SEC (12.0-15.0) H D 09/29/16 05:10 INR 3.07 (0.83-1.16) H 09/29/16 05:10 Physical Exam - Physical Exam General Appearance: WD/WN, alert, no apparent distress EENT: PERRL/EOMI, normal ENT inspection, pharynx normal Respiratory: lungs clear, normal breath sounds Cardiac/Chest: regular rate, rhythm, other (palpable radial pulse left stronger than right. Hands warm. senstation decreased but intact) ICD10 Worksheet Patient Problems: Problems Problem Status Onset Arterial occlusion Acute Occlusion of right brachial artery Acute Right arm pain Acute Stenosis of subclavian artery Acute
[2016-09-29] MEDS ORDERED: WARFARIN SODIUM 5 MG TAB PO SCH (16:00)
[2016-09-30 04:57] LABS: INR 2.56 (0.83-1.16); PROTIME(PATIENT) 27.8 SEC (12.0-15.0)
[2016-09-30 05:22] LABS: ABSOLUTE NRBC COUNT 0.13 10^3/uL (0-0.01); ADD DIFF? YES; ADD MORPH? NO; ADD SCAN? NO; ATYPICAL LYMPHOCYTE FLAG 10 (0-99); FRAGMENT RBC FLAG 0 (0-99); HEMATOCRIT 25.8 % (38.0-47.0); HEMOGLOBIN 8.3 g/dL (12.6-16.3); LEFT SHIFT FLG 50 (0-99); LIPEMIA HEMOLYSIS FLAG 80 (0-99); MEAN CELL HEMOGLOBIN 30.6 pg (27.9-34.1); MEAN CELL HEMOGLOBIN CONCENTR. 32.2 g/dL (32.4-36.7); MEAN CELL VOLUME 95.2 fL (81.5-99.8); MEAN PLATELET VOLUME 12.8 fL (8.7-11.7); NRBC-AUTO% 0.9 % (0.0-0.2); PLATELET CLUMPS FLAG 10 (0-99); RED BLOOD CELL COUNT 2.71 10^6/uL (4.18-5.33); RED CELL DISTRIBUTION WIDTH 17.6 % (11.5-15.2)
[2016-09-30 05:27] LABS: PLATELET COUNT 46 10^3/uL (150-400)
[2016-09-30 06:06] LABS: LARGE PLATELETS PRESENT; PLATELET ESTIMATE DECREASED (ADEQ)
[2016-09-30 06:08] LABS: MICROCYTES 2+
[2016-09-30 06:09] LABS: TOXIC GRANULATION PRESENT
[2016-09-30 06:11] LABS: KERATOCYTES 1+; POLYCHROMASIA 2+
[2016-09-30 06:12] LABS: SCHISTOCYTES 1+
[2016-09-30] MEDS ORDERED: ALENDRONATE SODIUM 70 MG TAB PO SCH (07:00)
[2016-09-30] MEDS: LEVOTHYROXINE 75 MCG TAB PO SCH (07:12)
[2016-09-30] MEDS: predniSONE 10 MG TAB PO SCH (08:28)
[2016-09-30] MEDS: NIFEdipine ER 30 MG TAB PO SCH (08:29)
[2016-09-30] MEDS: ASPIRIN 81 MG CHEWABLE TAB PO SCH (08:29)
--- NOTE | 2016-09-30 09:41 | SOAPPROG ---
ARABELLA Progress Note Assessment/Plan: Assessment/Plan: 71 Y F c presumed vasculitis followed by rheumatology, on prednisone, s/p axillary brachial bypass, recent occlusion resolved by IR TPA lysis, intervention, recurrent symptoms resolved c axillary stent proximal to graft, now readmitted with hand and arm pain, found to have partially occluded thrombus of graft. Improved with heparin/coumadin. 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 Marked improvement of symptoms. Great radial pulse. Finger tip warm, mild tingling. INR goal for 3-4. Today down to 2.56. Seen and examined with Dr. Cunningham today. Contacted hematology, Dr. Velasquez, who is familiar with patient. We discussed adding an antiplatelet agent, likely plavix. Benefit of preventing recurrent thrombosis and limb risk outweighs risk of bleeding in this situation despite thrombocytopenia, which is improving. He will pt later today. Dispo: would like to keep her here at least one more night for monitoring. S: finger tips tingly O: alert, nad no wob, ctab anteriorly rrr abd soft ext RUE palpable radial pulse, hand warm, fingertips pink, +ecchymosis 09/30/16 09:43 Objective: Vital Signs Temp Pulse Resp BP Pulse Ox 37.0 C 63 14 143/79 H 96 09/30/16 08:00 09/30/16 08:00 09/30/16 08:00 09/30/16 08:00 09/30/16 08:00 Laboratory Results 09/30/16 04:11 09/29/16 09/30/16 10/01/16 05:59 05:59 05:59 Intake Total 1267 650 Balance 1267 650 PT 27.8 SEC (12.0-15.0) H 09/30/16 04:11 INR 2.56 (0.83-1.16) H 09/30/16 04:11 ICD10 Worksheet Patient Problems: Problems Problem Status Onset Arterial occlusion Acute Occlusion of right brachial artery Acute Right arm pain Acute Stenosis of subclavian artery Acute
[2016-09-30] MEDS: CLOPIDOGREL BISULFATE 75 MG TAB PO SCH (10:44)
[2016-09-30] MEDS ORDERED: WARFARIN SODIUM 7.5 MG TAB PO ONE (15:30)
--- NOTE | 2016-09-30 16:55 | ECHO ---
[id number] + + [address] : : [place] [address] : : [phone] + + Adult Echocardiographic Report + --------+ :Name: EDEL CATHERINE Date: 09/30/2016 04:12 PM BP: 154/73 mm Hg : : Hospital Admission Number: [id number] Locat ion: 214: :: 1945 Gender: Female Height: 69 in : :Age: 71 yrs Race: WH Weight: 220 l b : :Reason For Study: source of emboli for arterial occulsions : : BSA: 2.2 mete rs2 : :History: left and right arm arterial occulsions : + --------+ MMode/2D Measurements \T\ Calculations IVSd: 1.1 cm RVDd: 3.9 cm FS: 42.7 % Ao root diam: LVPWd: 1.00 cm LVIDd: 4.1 cm EDV(Teich): 3.2 cm LVIDs: 2.4 cm 75.2 ml ESV(Teich): 19.3 ml EF(Teich): 74.3 % LVLd ap4: 8.7 cm SV(MOD-sp4): EDV(MOD-sp4): 96.0 ml 123.0 ml LVLs ap4: 7.0 cm ESV(MOD-sp4): 27.0 ml EF(MOD-sp4): 78.0 % Normal Measurement Values: + + :LVIDd (3.5-5.7cm) IVSd (0.6-1.1cm) LVPWd (0.6-1.1cm) Aortic Root (2.0-3.7cm)Left Atrium (1.5-4.0cm): :LV Vol(d) (76-115ml) LV Vol(s) (29-48ml) Ejec Fraction (50-65%)PV Matti (0.6- 1.2m/s) TV Matti (0.4-1.0m/s) : :MV E Matti (0.8-1.0m/s)MV A Matti (0.3-1.0m/s)LVOT Matti (0.7-1.2m/s) Asc Ao Matti ( 0.9-1.8m/s) : + + Doppler Measurements \T\ Calculations MV E max matti: Ao V2 max: LV V1 max: PA V2 max: 74.0 cm/sec 173.6 cm/sec 154.9 cm/sec 109.9 cm/sec MV A max matti: Ao max PG: LV V1 max PG: PA max P.7 cm/sec 12.0 mmHg 9.6 mmHg 4.8 mmHg MV E/A: 0.66 MV dec time: 0.23 sec TR max matti: 312.2 cm/sec TR max P.0 mmHg RAP systole: 5.0 mmHg RVSP(TR): 44.0 mmHg Left Ventricle The left ventricle is normal in size and function. There is borderline concentric left ventricular hypertrophy. Ejection Fraction = 70-75%. No regional wall motion abnormalities noted. Right Ventricle The right ventricle is normal in size and function. Atria The left atrial size is normal. Right atrial size is normal. Mitral Valve The mitral valve is normal in structure and function. There is trace mitral regurgitation. Tricuspid Valve The tricuspid valve is normal in structure and function. There is mild tricuspid regurgitation. Right ventricular systolic pressure is 44mmHg. There is Doppler evidence for mild pulmonary hypertension. Aortic Valve The aortic valve is trileaflet. There is no aortic stenosis. There is no aortic insufficiency. Pulmonic Valve The pulmonic valve is not well visualized. Great Vessels The aortic root is normal size. Pericardium/Pleural There is no pericardial effusion. Conclusion A two-dimensional transthoracic echocardiogram with M-mode and Doppler was performed. The study was technically difficult. There is no obvious source of embolus identified. If one is highly clinically suspected, then transesophageal echocardiography should be considered. (1) Left ventricular systolic ejection fraction was onrmal (70%) - normal wall motion (2) Borderline concentric left ventricular hypertrophy (3) No diastolic dysfunction (4) Normal right ventricular systolic function (5) Normal atrial dimensions (6) Physiologic mitral regurgitation (7) Trileaflet aortic valve without sclerosis or insufficiency (8) Mild tricuspid regurgitation - RVSP was estimated to be 40-45 mm Hg (9) Poor visualization of the pulmonic valve (10) No comparison echocardiograms Final Reading Physician: Chris Johnson signed on 09/30/2016 04:54 PM Ordering Physician: Ila Velasquez Performed By: Eliana Khan
--- NOTE | 2016-09-30 21:07 | GCON ---
[f rep st] CONSULTATION HEMATOLOGY CONSULTATION DATE OF CONSULTATION: 09/30/2016 REASON FOR CONSULTATION: Recurrent arterial thrombosis. HISTORY OF PRESENT ILLNESS: The patient is a pleasant 71-year-old female, who had an unprovoked pul monary embolism in 2011. A hypercoagulable evaluation at that time was unrevealing. She did have a transiently abnormal anti phospholipid antibody that resolved upon further testing. The patient co mpleted 1 year of warfarin therapy. She was last seen in our office in 2014. In June of this year, she was admitted with acute onset right upper extremity pain. She was fou nd to have a right upper extremity arterial thrombosis (subclavian artery). She underwent a bypass surgical procedure. Several days later, she presented with pain in the left upper extremity. She h ad an arterial thrombosis in the left upper extremity as well, requiring surgical bypass. She was eventually discharged. She was on 81 mg aspirin. In September of this year, she developed recurrent pain in the right upper extremity. She had recurrent arterial thrombosis requiring intervention. She was discharged and recently readmitted with recurr ent thrombosis in the right upper extremity. This was treated most recently with tPA lysis. Axilla ry stent was placed. The patient is on warfarin with a therapeutic INR. She was previously on hepa rin. She developed thrombocytopenia while on heparin, which has been held. HIT antibody testing schwartz s been sent and is pending. I spoke to Fransisca Woodall, with General Surgery, earlier today and recommended starting Plavix. The patient did have a biopsy of her left brachial artery done on July 09 which revealed evidenc e of large vessel vasculitis. She has been on a tapering dose of prednisone in the outpatient [facility] under the care of Dr. Neel Sarah. PAST MEDICAL HISTORY: 1. Unprovoked pulmonary embolism 2011. 2. Prior hysterectomy. 3. Prior appendectomy. 4. Prior cholecystectomy. 5. History of hernia repair. SOCIAL HISTORY: Patient is a former smoker but quit in 2005. REVIEW OF SYSTEMS: The patient reports no extremity pain or swelling at the current time. Denies c hest pain or cough. Denies exertional dyspnea. Reports easy bruisability. Denies bleeding. Speci fically denies epistaxis or gingival bleeding. PHYSICAL EXAM: GENERAL: The patient is resting comfortably in bed. She is in no acute distress. HEENT: Pupils equal. Sclerae are nonicteric. Oropharynx is clear with no mucosal lesions. HEART: Regular without murmur. LUNGS: Clear bilaterally. No wheeze, no rhonchi. No crackles. No flan k tenderness. Patient has strong radial pulses in both of her wrists. Good capillary refill in all fingers. No upper extremity swelling. She has a few scattered ecchymoses over both forearms. SAW ROLOGIC: She is alert, oriented and appropriate. ABDOMEN: Soft, nontender, nondistended. Spleen is nonpalpable. EXTREMITIES: She has no lower extremity swelling or edema and good capillary refil l in all toes. LABORATORY STUDIES: Platelet count on admission was 120,000, dropped to 23,000, then to 25,000. It is 46,000 this morning. Hemoglobin 8.3. White count is 14.5. HCT panel is pending. INR today is 2.5. Creatinine 1.0. IMPRESSION: 1. Recurrent upper extremity arterial thrombosis (bilateral). 2. Giant cell arteritis (patient currently on prednisone). 3. History of unprovoked pulmonary embolus in 2011 with negative hypercoagulable workup. The patient is a pleasant 71-year-old female, who has been admitted to the hospital on multiple occa sions with recurrent upper extremity arterial thrombosis. A biopsy revealed evidence of giant cell arteritis. She has been started on prednisone but has had recurrent thrombosis despite this interve ntion. Most recently, she was on warfarin. I do recommend adding Plavix to warfarin given that she has had arterial thrombosis and I think the addition of an anti-platelet agent is the best next step in her anticoagulation management. Her asp irin will be discontinued. Given that we are adding Plavix, I do not recommend a higher INR target and would recommend continued warfarin with a goal INR of 2-3. I will be happy to manage her warfar in once she is discharged. I have sent antiphospholipid antibody testing and anti-beta 2 glycoprotein antibody testing to exclu de antiphospholipid antibody syndrome as a cause of her recurrent thrombosis. I cannot find that she has had an echocardiogram done during her recent hospital stays and have orde red this to evaluate for cardiac source of thrombosis, although I have a low suspicion for this. I have attempted to contact Dr. Sarah to discuss her case. The patient does have a drop in her platelet count with heparin exposure. Heparin has been stopped. 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 I do recommend continuing to avoid heparin products in this patient. I explained to the patient that her clinical scenario is quite atypical and that certainly there is an increased risk of bleeding with a combination of warfarin and Plavix; however, given the limb thr eatening nature for recurrent thrombosis, I think the potential benefit of anticoagulation outweighs the risk. She is in agreement with this approach. She asked multiple questions which were answered to her satisfaction. I will plan on following with her once she is discharged. Total time for today's visit was approximately 65 minutes of which greater than 50% was spent in cou nseling and care coordination. /[id number]/MODL
[2016-10-01 04:22] VITALS: TEMP 97.9
[2016-10-01] MEDS: LEVOTHYROXINE 75 MCG TAB PO SCH (06:20)
[2016-10-01 08:15] VITALS: BP 124/68; PULSE 58; RESP 16; O2SAT 100
[2016-10-01] MEDS: predniSONE 10 MG TAB PO SCH (08:20)
[2016-10-01] MEDS: NIFEdipine ER 30 MG TAB PO SCH (08:20)
[2016-10-01] MEDS: CLOPIDOGREL BISULFATE 75 MG TAB PO SCH (08:21)
[2016-10-01 09:40] LABS: INR 2.99 (0.83-1.16); PROTIME(PATIENT) 31.5 SEC (12.0-15.0)
--- NOTE | 2016-10-01 11:27 | SOAPPROG ---
ARABELLA Progress Note Assessment/Plan: Assessment/Plan: 71 Y F c presumed vasculitis followed by rheumatology, on prednisone, s/p axillary brachial bypass, recent occlusion resolved by IR TPA lysis, intervention, recurrent symptoms resolved c axillary stent proximal to graft, now readmitted with hand and arm pain, found to have partially occluded thrombus of graft. Improved with heparin/coumadin. 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 Unchanged overnight--marked improvement of symptoms. Great radial pulse. Finger tips warm, mild tingling. INR goal for 2-3 now that plavix added. Today INR 2.99. Appreciate Dr. Velasquez's input. Dispo: D/c to home today with plavix and ASA. F/u with Dr. Velasquez for INR friday. S: finger tips tingly O: alert, nad no wob, ctab anteriorly rrr abd soft ext RUE palpable radial pulse, hand warm, fingertips pink, +ecchymosis 10/01/16 11:24 Objective: Vital Signs Temp Pulse Resp BP Pulse Ox 36.6 C 58 L 16 124/68 H 100 10/01/16 08:00 10/01/16 08:00 10/01/16 08:00 10/01/16 08:00 10/01/16 08:00 Laboratory Results 09/30/16 04:11 09/30/16 10/01/16 10/02/16 05:59 05:59 05:59 Intake Total 650 1600 Balance 650 1600 PT 31.5 SEC (12.0-15.0) H 10/01/16 09:14 INR 2.99 (0.83-1.16) H 10/01/16 09:14 ICD10 Worksheet Patient Problems: Problems Problem Status Onset Arterial occlusion Acute Occlusion of right brachial artery Acute Right arm pain Acute Stenosis of subclavian artery Acute
[2016-10-01 19:24] LABS: BETA 2 GLYCOPROTEIN I IGG <9.4 U/mL; BETA 2 GLYCOPROTEIN IGM <9.4 U/mL
[2016-10-02 14:44] LABS: HEPARIN INDUCED ANTIBODY Equivocal (Negative); HEPARIN INHIBITION 34 %; REACTIVITY 86 % (<20)
== END 2016-10-01 11:54 | disposition home or self-care (01) | DRG 316 ==
LOC: OBSVTOIN 11:52 → F2W 14:29
PROVIDERS: ADMIT Surgery; ATTEND Surgery
DX: T82.868A Thrombosis due to vascular prosthetic devices, implants and grafts, initial encounter (principal); M31.6 Other giant cell arteritis; Z86.711 Personal history of pulmonary embolism; Z79.01 Long term (current) use of anticoagulants; Z87.891 Personal history of nicotine dependence; Z79.52 Long term (current) use of systemic steroids
CPT/HCPCS: 82947-QW; 85520-90; 86022-90; 86147-90; 96374; C1769; C1876; C1892; G0378; J0360; J1170; J1644; J2250; J3010; Q9967

== ENCOUNTER → 2016-12-03 | Outpatient (CLI) | payer OTHER ==
[~2016-12-03] MED LIST: LIDOCAINE 1% 300 MG/30 ML SDV ONE; NA BICARBONATE 50 MEQ/50 ML VIAL ONE; THROMBIN (BOVINE) 5,000 UNIT VIAL TP ONE
== END ==
LOC: FIMAGING 15:44
PROVIDERS: ATTEND Surgery
DX: I72.4 Aneurysm of artery of lower extremity (principal)

== ENCOUNTER → 2016-12-04 | Outpatient (CLI) | payer OTHER | LOC: FIMAGING 10:50 | PROVIDERS: ATTEND Surgery | DX: I72.4 Aneurysm of artery of lower extremity (principal) ==